=== PATIENT | male | born 1985 | race African-American/Black ===

== ENCOUNTER 2024-07-03 16:04 | Observation (INO) | payer OTHER, SELFPAY ==
[2024-07-03] VITALS (10 sets, daily range): BP systolic 105–138; BP diastolic 78–86; PULSE 71–90; TEMP 36.6–36.9; O2SAT 95–99; BMI 24.3
--- NOTE | 2024-07-03 16:28 | XR_ITS ---
The [address] [address] Patient Name: CAROLE VILLAGRAN MRN: [id number] date: 1985 Sex: M Assigned Patient Location: ER Current Patient Location: ER Accession/Order Number: [id number] Exam Date: 07/03/2024 16:58 Report Date: 07/03/2024 17:53 At the request of: ANDREW ROBERSON Procedure: XR chest 1V EXAM: XR chest 1V HISTORY: CP COMPARISON: None. TECHNIQUE: Chest X-ray AP, 1 view FINDINGS: Support devices: None. Lungs/pleura: No consolidation, effusion, or pneumothorax. Heart and mediastinum: Normal contours. Bones: No acute abnormality identified. XR/XR chest 1V Impression: No radiographic evidence of acute cardiopulmonary process. Electronically authenticated by: TONY MAHAN Date: 07/03/2024 17:53
--- NOTE | 2024-07-03 16:28 | ECG_ITS ---
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
[2024-07-03 16:45] LABS: Basophils Absolute Auto 0.1 10^3/uL (0.0-0.1); Basophils Percent Auto 0.4 % (0.2-2.0); Eosinophils Absolute Auto 0.1 10^3/uL (0.0-0.7); Eosinophils Percent Auto 1.2 % (0.9-7.0); Hematocrit 44.2 % (42.0-54.0); Hemoglobin 14.9 g/dL (14.0-18.0); Immature Granulocytes Abs Auto 0.05 10^3/uL (0.00-0.03); Immature Granulocytes Pct Auto 0.4 % (0.0-0.5); Lymphocytes Absolute Auto 2.4 10^3/uL (1.2-3.8); Lymphocytes Percent Auto 20.5 % (20.5-60.0); Mean Corpuscular HGB Conc 33.7 g/dL (29.9-35.2); Mean Corpuscular Hemoglobin 27.2 pg (25.9-34.0); Mean Corpuscular Volume 80.8 fL (80.0-94.0); Mean Platelet Volume 9.5 fL (9.5-13.5); Neutrophils Absolute Auto 7.8 10^3/uL (1.4-6.5); Neutrophils Percent Auto 68.5 % (43.0-75.0); Platelet Count 306 10^3/uL (150-450); Red Blood Count 5.47 10^6/uL (4.70-6.10); White Blood Count 11.5 10^3/uL (4.0-11.0)
[2024-07-03] MEDS: 0.9 % SODIUM CHLORIDE 1,000 ML 1000 ML IV ×2 (16:47→17:53)
[2024-07-03 17:01] LABS: INR 1.05; Prothrombin Time 11.1 sec (9.0-11.6)
--- NOTE | 2024-07-03 17:01 | ED_ITS ---
HPI - Chest Pain General Chief Complaint: Chest Pain Stated Complaint: BWC-CP, DIZZINESS Time Seen by Provider: 07/03/24 16:24 Source: patient Mode of arrival: walk-in Limitations: no limitations History of Present Illness HPI narrative: The patient is coming to us from his work in [employer] apparently it is very warm inside where he works, he mentioned that he had no complaint in the morning he had breakfast with no difficulty, almost at 10 AM which is almost 7 hours before arrival he started having some chest tightness, generalized pain, in addition to headache The patient upon arrival was very wet under his jumpsuit The patient also has been complaining of dizziness and he was sweating, no radiation of the pain down his leg or arm and he mentioned that it is mostly of tightness He denies any medical issues except taking gabapentin Related Data Home Medications ?Medication ?Instructions ?Recorded ?Confirmed gabapentin 300 mg capsule 300 mg PO TID 07/03/24 07/03/24 Allergies Allergy/AdvReac Type Severity Reaction Status Date / Time No Known Drug Allergies Allergy Verified 07/03/24 16:27 Review of Systems ROS Status of ROS 10 or more systems reviewed and unremark able except as noted in history and below Exam Narrative Exam Narrative: Nurses notes and vital signs reviewed and patient is not hypoxic. General: Well-appearing and in no apparent distress. Skin: Warm, dry, no pallor noted. No rash. Head: Normocephalic, atraumatic. Neck: Supple, non-tender. Eye: Pupils are equal, round and EOMI. No scleral icterus. Ears, Nose, Mouth, and Throat: TM are clear, no nasal mucosal hypertrophy. Oral mucosa is moist, no posterior oropharynx erythema, uvula is mid-line Cardiovascular: Regular Rate and Rhythm without murmur, gallop or rub. Respiratory: No accessory muscle use or respiratory distress. Lungs are clear to auscultation, no wheezing, rales or rhonchi Chest Wall: no tenderness Back: No midline thoracic or lumbar vertebral tenderness. No CVA tenderness Musculoskeletal: normal ROM, no calf or popliteal tenderness, no lower extremity edema/swelling GI: Abdomen is soft, non-distended. Normal bowel sounds. No masses appreciated. No tenderness to palpation. No rebound, guarding, or rigidity noted. Neurological: A&O x4. No cranial nerve dysfunction observed. No truncal ataxia. Moves all extremities. Sensation intact. Psychiatric: Cooperative and interactive. Normal mood and affect. Constitutional Vital Signs, click to edit/add: Last Vital Signs Temp 98.5 F 07/03/24 16:20 Pulse 84 07/03/24 17:00 Resp 16 07/03/24 17:00 BP 105/78 07/03/24 17:13 Pulse Ox 99 07/03/24 17:00 O2 Del Method Room Air 07/03/24 16:20 Course Vital Signs Vital signs: Vital Signs Pulse Oximetry 97 07/03/24 16:17 Temperature 98.5 F 07/03/24 16:20 Pulse Rate 84 07/03/24 17:00 Respiratory Rate 16 07/03/24 17:00 Blood Pressure 105/78 07/03/24 17:13 Pulse Oximetry 99 07/03/24 17:00 Oxygen Delivery Method Room Air 07/03/24 16:20 MDM - Chest Pain MDM Narrative Medical decision making narrative: It was noted that the patient EKG showing early repolarization signs with some ST changes and the heart rate was 91 The patient CBC showed no acute significant pathology but the chemistry showing acute kidney injury with creatinine 2.9 Potassium was normal The patient was started on IV fluid The patient first troponin is negative he will have another troponin just for confirmation but his presentation is mostly secondary to acute kidney injury secondary to dehydration Right now the patient will be admitted for 24 hours observation Patient case was discussed with Dr. Gill and the patient will be admitted under Dr. Valdez Lab Data Labs: Lab Results 07/03/24 Range/Units 16:28 WBC 11.5 H (4.0-11.0) 10^3/uL RBC 5.47 (4.70-6.10) 10^6/uL Hgb 14.9 (14.0-18.0) g/dL Hct 44.2 (42.0-54.0) % MCV 80.8 (80.0-94.0) fL MCH 27.2 (25.9-34.0) pg MCHC 33.7 (29.9-35.2) g/dL RDW 15.0 (11.0-15.0) % Plt Count 306 (150-450) 10^3/uL MPV 9.5 (9.5-13.5) fL Neut % (Auto) 68.5 (43.0-75.0) % Lymph % (Auto) 20.5 (20.5-60.0) % [place] % (Auto) 9.0 (1.7-12.0) % Eos % (Auto) 1.2 (0.9-7.0) % Baso % (Auto) 0.4 (0.2-2.0) % Neut # (Auto) 7.8 H (1.4-6.5) 10^3/uL Lymph # (Auto) 2.4 (1.2-3.8) 10^3/uL [place] # (Auto) 1.0 H (0.3-0.8) 10^3/uL Eos # (Auto) 0.1 (0.0-0.7) 10^3/uL Baso # (Auto) 0.1 (0.0-0.1) 10^3/uL Abs Immat Gran (auto) 0.05 H (0.00-0.03) 10^3/uL Imm/Tot Granulo (auto) 0.4 (0.0-0.5) % PT 11.1 (9.0-11.6) sec INR 1.05 Sodium 140 (136-145) mmol/L Potassium 3.7 (3.5-5.1) mmol/L Chloride 100 (98-107) mmol/L Carbon Dioxide 21.4 (21.0-32.0) mmol/L Anion Gap 22.3 BUN 27.0 H (7.0-18.0) mg/dL Creatinine 2.90 H (0.70-1.30) mg/dL Est GFR ( Amer) 29 L (>=60) Est GFR (Non-Af Amer) 24 L (>=60) BUN/Creatinine Ratio 9.3 Glucose 102 (74-106) mg/dL Calcium 10.6 H (8.5-10.1) mg/dL Magnesium 1.9 (1.8-2.4) mg/dL Total Bilirubin 0.4 (0.2-1.0) mg/dL AST 20 (15-37) U/L ALT 20 (16-63) U/L Alkaline Phosphatase 56 (46-116) U/L Troponin I High Sens 7.4 (4.0-76.1) pg/mL Total Protein 8.9 H (6.4-8.2) g/dL Albumin 5.3 H (3.4-5.0) g/dL Globulin 3.6 g/dL Albumin/Globulin Ratio 1.5 Discharge Plan Discharge Chief Complaint: Chest Pain Clinical Impression: PB (acute kidney injury), Exertional heat stroke Patient Disposition: Admitted as Observation Time of Disposition Decision: 18:39
--- NOTE | 2024-07-03 17:06 | PC.NURSE ---
pt states was working in 140 degrees. pt felt dizzy, chest tightness, loss his voice, lethargic.
[2024-07-03 17:45] LABS: Alanine Aminotransferase 20 U/L (16-63); Albumin Globulin Ratio 1.5; Albumin Level 5.3 g/dL (3.4-5.0); Alkaline Phosphatase 56 U/L (46-116); Anion Gap 22.3; Aspartate Amino Transferase 20 U/L (15-37); BUN Creatinine Ratio 9.3; Bilirubin Total 0.4 mg/dL (0.2-1.0); Calcium 10.6 mg/dL (8.5-10.1); Carbon Dioxide 21.4 mmol/L (21.0-32.0); Chloride 100 mmol/L (98-107); Estimated GFR (African America 29 (>=60); Estimated GFR (Non-African Ame 24 (>=60); Globulin 3.6 g/dL; Glucose 102 mg/dL (74-106); Potassium 3.7 mmol/L (3.5-5.1); Sodium 140 mmol/L (136-145); Total Protein 8.9 g/dL (6.4-8.2)
[2024-07-03 17:47] LABS: Magnesium 1.9 mg/dL (1.8-2.4); Troponin I High Sensitivity 7.4 pg/mL (4.0-76.1)
[2024-07-03 18:35] LABS: Bilirubin Urine NEGATIVE (NEGATIVE); Blood Urine NEGATIVE (NEGATIVE); Clarity Urine CLEAR (CLEAR); Color Urine YELLOW (YELLOW); Glucose Urine UA NEGATIVE (NEGATIVE); Ketones Urine TRACE mg/dL (NEGATIVE); Leukocyte Esterase Urine NEGATIVE (NEGATIVE); Nitrite Urine NEGATIVE (NEGATIVE); Protein Urine TRACE mg/dL (NEG/TRACE); Specific Gravity Urine >=1.030 (1.005-1.025); Urobilinogen Urine 0.2 EU/dL (0.2-1.0); pH Urine 5.5 (5.0-9.0)
[2024-07-03 18:49] LABS: Creatine Kinase 295 U/L (39-308); Troponin I High Sensitivity 6.8 pg/mL (4.0-76.1)
[2024-07-03 18:52] LABS: Urine Microscopic Indicated NO
[2024-07-03] MEDS: ACETAMINOPHEN 325 MG TABLET 650 MG PO (18:59)
[2024-07-03] MEDS: 0.9 % SODIUM CHLORIDE 1,000 ML 150 ML IV (20:37)
[2024-07-04] VITALS (10 sets, daily range): BP systolic 108–114; BP diastolic 61–71; PULSE 64–77; TEMP 36.6; O2SAT 95–99
[2024-07-04] MEDS: 0.9 % SODIUM CHLORIDE 1,000 ML 150 ML IV (02:41)
[2024-07-04 05:51] LABS: Basophils Percent Auto 0.5 % (0.2-2.0); Eosinophils Absolute Auto 0.3 10^3/uL (0.0-0.7); Eosinophils Percent Auto 5.3 % (0.9-7.0); Hematocrit 36.8 % (42.0-54.0); Hemoglobin 12.3 g/dL (14.0-18.0); Immature Granulocytes Abs Auto 0.02 10^3/uL (0.00-0.03); Immature Granulocytes Pct Auto 0.3 % (0.0-0.5); Lymphocytes Absolute Auto 1.9 10^3/uL (1.2-3.8); Lymphocytes Percent Auto 30.8 % (20.5-60.0); Mean Corpuscular HGB Conc 33.4 g/dL (29.9-35.2); Mean Corpuscular Hemoglobin 27.3 pg (25.9-34.0); Mean Corpuscular Volume 81.6 fL (80.0-94.0); Mean Platelet Volume 9.7 fL (9.5-13.5); Monocytes Absolute Auto 0.6 10^3/uL (0.3-0.8); Monocytes Percent Auto 10.7 % (1.7-12.0); Neutrophils Absolute Auto 3.1 10^3/uL (1.4-6.5); Neutrophils Percent Auto 52.4 % (43.0-75.0); Platelet Count 228 10^3/uL (150-450); Red Blood Count 4.51 10^6/uL (4.70-6.10); Red Cell Distribution Width 15.2 % (11.0-15.0)
--- OUTSIDE RECORDS SUMMARY | 2024-07-04 05:58 | XMS_ITS | CCD ---
Author Organization [facility] Inform ion Partnership [facility] Care Team Providers Care Plating Department Helper Name Role Phone KENAN BATES Admitting Unavailable KENAN BATES Attending Unavailable KENAN BATES Consulting Unavailable REQUEST, NONE LISTED Consulting Unavailable NO FAMILY, PHYSICIAN Primary Care Provider PUSHPA Perera Attending Provider [phone] LEI YOST Attending Unavailable DHARMESH FLORES Referring Unavailable NO PCP, NO PCP Primary Care Unavailable Cooper Mccracken Attending Unavailab Cooper Briones Admitting Unavailab le NO FAMILY, PHYSICIAN Primary Care Unavailable Medications Current Medications Medication Drug Class(es) Dates Sig (Normalized) Sig (Original) acetaminophen 325 mg oral tablet (1 source) Start: 05-15-2020 take 2 tablets by mouth every six hours Acetaminophen (Tylenol) 325 mg tablet Active 650 MG PO Q6H May 15, 2020 12:00am escitalopram 5 mg oral tablet (1 source) Serotonin Reuptake Inhibitor Start: 05-15-2020 take 1 tablet by mouth once daily at bedtime Escitalopram Oxalate (Lexapro) 5 mg tablet Active 5 MG PO Daily at bedtime May 15, 2020 12:00am 12 hr guaiFENesin 600 mg extended release oral tablet (1 source) Start: 05-15-2020 take 1 tablet by mouth twice daily, then take 1 tablet by mouth every twelve hours Guaifenesin (Mucinex) 600 mg tablet extended release 12hr Active 600 MG PO Twice daily May 15, 2020 12:00am nicotine 2 mg chewing gum (1 source) Cholinergic Nicotinic Agonist Start: 03-24-2020 Nicotine (Polacrilex) Active 2 MG BUCCAL Q2H March 24, 2020 12:00am OLANZapine 5 mg oral tablet (1 source) Atypical Antipsychotic Start: 05-15-2020 take 5 mg by mouth once daily at bedtime Olanzapine Active 5 MG PO Daily at bedtime May 15, 2020 12:00am Problems Problem Classification Problem Date Documented Date Episodic/Chronic Alcohol-related disorders (1 source) Alcohol dependence; Translations: [Alcohol dependence, uncomplicated] 05-13-2020 Chronic Allergic reactions (1 source) Dermatitis, unspecified; Translations: [DERMATITIS UNSPECIFIED] Onset: 10-24-2019 Episodic Esophageal disorders (1 source) Gastroesophageal reflux disease; Translations: [Gastro-esophageal reflux disease without esophagitis] 05-13-2020 Chronic Genitourinary symptoms and ill-defined conditions (4 sources) Urethral discharge, unspecified; Translations: [Dysuria] Onset: 10-22-2019 Episodic Immunizations and screening for infectious disease (1 source) Contact with and (suspected) exposure to infections with a predominantly sexual mode of transmission; Translations: [CONTCT W EXPOS INFECT SEXUAL TRNSMS] Onset: 10-24-2019 Episodic Mood disorders (1 source) Major depression, single episode; Translations: [Major depressive disorder, single episode, unspecified] 05-13-2020 Chronic Nutritional deficiencies (1 source) Vitamin D deficiency; Translations: [Vitamin D deficiency, unspecified] 05-13-2020 Chronic Other nervous system disorders (1 source) Lesion of ulnar nerve, left upper limb; Translations: [Lesion of ulnar nerve, left upper limb] Onset: 02-22-2024 Chronic Schizophrenia and other psychotic disorders (1 source) Psychotic disorder; Translations: [Unspecified psychosis not due to a substance or known physiological condition] 03-24-2020 Chronic Substance-related disorders (2 sources) Nicotine dependence, cigarettes, uncomplicated; Translations: [Cocaine abuse] Onset: 10-24-2019 05-13-2020 Chronic Substance-related disorders (1 source) Stimulant abuse; Translations: [Other stimulant use, unspecified, uncomplicated] 03-24-2020 Episodic Unclassified (1 source) New Patient Onset: 02-22-2024 Urinary tract infections (1 source) Other urethritis; Translations: [OTHER URETHRITIS] Onset: 10-24-2019 Episodic Viral infection (1 source) Disease caused by 2019-nCoV; Translations: [COVID-19] 05-14-2020 Episodic Results Test Name Value Interpretation Reference Range Facility No Panel InformationOrdered By: Christa Britton on 07-08-2022 Ova and Parasite Result 1 [facility] Basophils Auto (Bld) [#/Vol] Ordered By: Christa Britton on 07-01-2022 Basophils (Bld) [#/Vol] 0.0 10*3/uL 0.0-0.2 [facility] Basophils/100 WBC Auto (Bld) Ordered By: Christa Britton on 07-01-2022 Basophils/100 WBC (Bld) 0.3 % . [facility] Blood hemoglobin measurement (mass/volume)Ordered By: Christa Britton on 07-01-2022 Hemoglobin (Bld) [Mass/Vol] 14.8 g/dL 13.0-17.0 [facility] Blood leukocytes automated c ount (number/volume)Ordered By: Christa Britton on 07-01-2022 WBC (Bld) [#/Vol] 7.1 10*3/uL 4.5-11.0 [facility] Body fluid albumin measureme nt (mass/volume)Ordered By: Christa Britton on 07-01-2022 Albumin (Body fld) [Mass/Vol] 3.8 g/dL 3.2-5.5 [facility] Clostridioides difficile tox in B tcdB gene [Presence] in Stool by GOPI with probe deteOrdered By: Christa Britton on 07-01-2022 C. difficile toxin B tcdB gene GOPI+probe Ql (Stl) Negative Negative [facility] Comment on above: Testing performed by RT-PCR Creatinine and Glomerular fi ltration rate.predicted panel (S/P/Bld)Ordered By: Christa Britton on 07-01-2022 Creatinine [Mass/Vol] 0.98 mg/dL 0.64-1.27 [facility] Eosinophils Auto (Bld) [#/Vo l]Ordered By: Christa Britton on 07-01-2022 Eosinophils (Bld) [#/Vol] 0.0 10*3/uL 0.0-0.45 [facility] Eosinophils/100 WBC Auto (Bl d)Ordered By: Christa Britton on 07-01-2022 Eosinophils/100 WBC (Bld) 0.5 % . [facility] Erythrocyte distribution wid th Auto (RBC) [Ratio]Ordered By: Christanegrita Britton on 07-01-2022 Erythrocyte distribution width (RBC) [Ratio] 16.8 % 12.0-14.8 [facility] Estimated glomerular filtrat ion rate (GFR) non- AmericanOrdered By: Christa Britton on 07-01-2022 GFR/1.73 sq M.predicted among non-blacks MDRD (S/P/Bld) [Vol rate/Area] > 60 mL/Min [facility] Globulin Calc (S) [Mass/Vol] Ordered By: [place] on 07-01-2022 Globulin (S) [Mass/Vol] 2.9 g/dL [facility] Hematocrit Auto (Bld) [Volum e fraction]Ordered By: Christanegrita Britton on 07-01-2022 Hematocrit (Bld) [Volume fraction] 45.4 % 38.8-50.0 [facility] Hepatitis B virus surface Ag [Presence] in Serum or Plasma by ImmunoassayOrdered By: Christa Britton on 07-01-2022 HBV surface Ag IA Ql Negative Negative [facility] Hepatitis C virus RNA [Units /volume] (viral load) in Serum or Plasma by GOPI with probOrdered By: Christa Britton 07-01-2022 HCV RNA GOPI+probe Qn N/A [facility] Hepatitis C virus RNA [log u nits/volume] (viral load) in Serum or Plasma by GOPI withOrdered By: Christa Britton 07-01-2022 HCV RNA GOPI+probe [Log units/Vol] N/A [facility] - Chemistry and C hemistry - challengeOrdered By: Christanegrita Britton 07-01-2022 Amylase [Catalytic activity/Vol] 27 U/L 7-64 [facility] - Hematology and Cell countsOrdered By: Christanegrita Britton 07-01-2022 Nucleated RBC/100 WBC (Bld) [Ratio] 0.0 % 0-0.5 [facility] Lymphocytes Auto (Bld) [#/Vo l]Ordered By: Christa Britton 07-01-2022 Lymphocytes (Bld) [#/Vol] 1.0 10*3/uL 1.00-4.8 [facility] Lymphocytes/100 WBC Auto (Bl d)Ordered By: Christa Britton on 07-01-2022 Lymphocytes/100 WBC (Bld) 13.6 % . [facility] MCH Auto (RBC) [Entitic mass ]Ordered By: Christa Britton on 07-01-2022 MCH (RBC) [Entitic mass] 27.7 pg 27.5-35.2 [facility] MCHC Auto (RBC) [Mass/Vol]Or dered By: Christa Britton on 07-01-2022 MCHC (RBC) [Mass/Vol] 32.5 g/dL 32.5-35.6 [facility] MCV Auto (RBC) [Entitic vol] Ordered By: Christa Britton on 07-01-2022 MCV (RBC) [Entitic vol] 85.2 fL 83.5-101 [facility] Monocytes Auto (Bld) [#/Vol] Ordered By: Christa Britton on 07-01-2022 Monocytes (Bld) [#/Vol] 0.5 10*3/uL 0.0-0.8 [facility] Monocytes/100 WBC Auto (Bld) Ordered By: Christa Britton on 07-01-2022 Monocytes/100 WBC (Bld) 6.4 % . [facility] Neutrophils Auto (Bld) [#/Vo l]Ordered By: Christanegrita Britton on 07-01-2022 Neutrophils (Bld) [#/Vol] 5.6 10*3/uL 1.8-7.7 [facility] Neutrophils/100 WBC Auto (Bl d)Ordered By: Christanegrita Britton on 07-01-2022 Neutrophils/100 WBC (Bld) 79.2 % . [facility] No Panel InformationOrdered By: Christa Britton on 07-01-2022 Estimated GFR () > 60 mL/Min [facility] Comment on above: GFR estimated refere nce range: According to KDOQI guidelines, <60 ml/min/1.73m2 is sufficient to diagnose a patient with chronic kidney disease. Hepatitis A IgM Antibody Negative Negative [facility] Hepatitis B Core IgM Antibody Negative Negative [facility] Hepatitis C Interpretation See comment . [facility] Comment on above: Negative Not infected with HCV, unless recent infection is suspected or other evidence exists to indicate HCV infection. Performed at: [facility] [id number] [place] Selector: Devon Rodriguez PhD, Phone: [phone] Hepatitis C RNA Quantitative N/A [facility] Creatinine Clearance (Chem N/A [facility] Platelet mean volume Auto (B ld) [Entitic vol]Ordered By: Christa Britton on 07-01-2022 Platelet mean volume (Bld) [Entitic vol] 8.1 fL 6.6-10.1 [facility] Platelets Auto (Bld) [#/Vol] Ordered By: Christa Britton on 07-01-2022 Platelets (Bld) [#/Vol] 272 10*3/uL 150-450 [facility] Protein [Mass/volume] in Ser um or PlasmaOrdered By: Christa Britton on 07-01-2022 Protein [Mass/Vol] 6.7 g/dL 6.1-7.9 [facility] RBC Auto (Bld) [#/Vol]Ordere d By: Christa Britton on 07-01-2022 RBC (Bld) [#/Vol] 5.33 10*6/uL 3.90-5.60 [facility] Serum or plasma alanine reyes otransferase measurement without P-5'-P (enzymatic activiOrdered By: Christa Britton on 07-01-2022 ALT No additional P-5'-P [Catalytic activity/Vol] 22 U/L 10-60 [facility] Serum or plasma albumin/glob ulin mass ratioOrdered By: Christanegrita Britton on 07-01-2022 Albumin/Globulin [Mass ratio] 1.3 {ratio} [facility] Serum or plasma alkaline johnny sphatase measurement (enzymatic activity/volume)Ordered By: Christa Britton on 07-01-2022 ALP [Catalytic activity/Vol] 60 U/L 32-92 [facility] Serum or plasma aspartate am inotransferase measurement (enzymatic activity/volume)Ordered By: Christa Britton on 07-01-2022 AST [Catalytic activity/Vol] 28 U/L 10-42 [facility] Serum or plasma calcium dana urement (mass/volume)Ordered By: Christa Britton on 07-01-2022 Calcium [Mass/Vol] 9.2 mg/dL 8.2-10.2 [facility] Serum or plasma chloride doroteo surement (moles/volume)Ordered By: Christa Britton on 07-01-2022 Chloride [Moles/Vol] 104 mmol/L 95-114 [facility] Serum or plasma glucose dana urement (mass/volume)Ordered By: Christa Britton on 07-01-2022 Glucose [Mass/Vol] 142 mg/dL 70-100 [facility] Comment on above: ADA recommended refe rence range Random Glucose Reference Range is dependent on time and content of last meal. Glucose of more than 200 mg/dL in a nonstressed, ambulatory subject supports the diagnosis of Diabetes Mellitus. Serum or plasma hepatitis C virus antibody signal/cutoff ratio by immunoassay (relatiOrdered By: Christa Britton on 07-01-2022 HCV Ab Signal/Cutoff IA [Rel units/Vol] <0.1 s/co ratio 0.0-0.9 [facility] Serum or plasma potassium me asurement (moles/volume)Ordered By: Christa Britton 07-01-2022 Potassium [Moles/Vol] 3.5 mmol/L 3.5-5.1 [facility] Serum or plasma sodium measu rement (moles/volume)Ordered By: Christa Britton 07-01-2022 Sodium [Moles/Vol] 136 mmol/L 136-146 [facility] Serum or plasma total biliru bin measurement (mass/volume)Ordered By: Christa Britton 07-01-2022 Bilirubin [Mass/Vol] 0.6 mg/dL 0.3-1.2 [facility] Serum or plasma total carbon dioxide measurement (moles/volume)Ordered By: Christa Britton 07-01-2022 CO2 [Moles/Vol] 22.4 mmol/L 22.0-30.0 [facility] Serum or plasma urea nitroge n measurement (mass/volume)Ordered By: Christa Britton on 07-01-2022 Urea nitrogen [Mass/Vol] 7 mg/dL 07-31 [facility] XR Abdomen 2 Viewson 022 XR Abdomen 2 Views HISTORY: Epigastric pain and nausea for 1 month. COMPARISON: None available TECHNIQUE: Frontal view of the abdomen and pelvis FINDINGS: No calcifications identified over the renal shadows, expected course of the ureters, urinary bladder. Nonobstructive bowel gas pattern. No evidence of free air. Bones appear within normal limits. IMPRESSION: Nonobstructive bowel gas pattern. Report reported and signed by Tyler Panchal on 07/01/2022 1032 Normal [facility] Agronomy Manager XR Spine Lumbar 4+ Views*on 07-01-2022 XR Spine Lumbar 4+ Views* HISTORY: Lower back pain for 1 month. No known injury. COMPARISON: None available TECHNIQUE: AP, lateral, bilateral oblique views of the lumbar spine and AP and lateral coned-down views of the lumbosacral junction FINDINGS: Lumbar vertebral body heights are maintained. Intervertebral disc heights are maintained. Minimal dextrocurvature. No spondylolysis or spondylolisthesis. No acute fracture or malalignment. Sacroiliac joints appear normal. IMPRESSION: No acute osseous abnormality. Report reported and signed by Tyler Panchal on 07/01/2022 1031 Normal [facility] Specialist CHLAMYDIA/GONOCOCCUS GOPI (SW AB/URINE/PAPon 10-25-2019 Chlamydia trachomatis, GOPI Negative Normal Negative [facility] Comment on above: Performed By: #### C T/NGNA #### [facility] [address] [address] Aj Carmona Neisseria gonorrhoeae, GOPI Negative Normal Negative [facility] Comment on above: Performed By: #### C T/NGNA #### [facility] [address] [address] Aj Carmona CULTURE URINEon 10-22-2019 CULTURE URINE Culture Observations: Light growth of mixed skin razia.No potential pathogens seen. Normal [facility] Comment on above: Performed By: #### U RCX #### [facility] [address] [place] [address] Aj Kristine ER URINE PROFILEon 9 Bilirubin [Mass/Vol] Negative Normal NEGATIVE [facility] Comment on above: Performed By: #### JOHAN VALLE #### [facility] [address] [place] [address] Aj Kristine BLOOD Negative Normal NEGATIVE [facility] Comment on above: Performed By: #### JOHAN VALLE #### [facility] [address] [place] [address] Aj Kristine Clarity (U) CLEAR Normal [facility] Comment on above: Performed By: #### JOHAN VALLE #### [facility] [address] [place] [address] Aj Kristine Color (U) YELLOW Normal YELLOW [facility] Comment on above: Performed By: #### JOHAN VALLE #### [facility] [address] [place] [address] Aj Kristine ERUAHD A micrscopic examination will be performed if indicated. Normal [facility] Comment on above: Performed By: #### JOHAN VALLE #### [facility] [address] [place] [address] Aj Kristine Glucose [Mass/Vol] Negative Normal NEGATIVE [facility] Comment on above: Performed By: #### JOHAN VALLE #### [facility] [address] [place] [address] Aj Kristine Ketones Ql (U) Negative Normal NEGATIVE [facility] Comment on above: Performed By: #### JOHAN VALLE #### [facility] [address] [place] [address] Aj Kristine Nitrite Ql (U) Negative Normal NEGATIVE [facility] Comment on above: Performed By: #### ARJUN VALLERO #### [facility] [address] [place] [address] Aj Kristine pH (Bld) 7.0 Normal 5-9 [facility] Comment on above: Performed By: #### JOHAN VALLE #### [facility] [address] [place], [place] [id number] Aj Kristine Protein (U) [Mass/Vol] Negative Normal [facility] Comment on above: Performed By: #### JOHAN VALLE #### [facility] [address] [place], [place] [id number] Aj Kristine SPEC GRAVITY 1.020 Normal 1.005-<=1.025 [facility] Comment on above: Performed By: #### JOHAN VALLE #### [facility] [address] [place] [address] Aj Kristine UR MICRO IND INDICATED Normal [facility] Comment on above: Performed By: #### JOHAN VALLE #### [facility] [address] [place] [address] Aj Kristine Urobilinogen Qn (U) 1.0 EU/dl Normal [facility] Comment on above: Performed By: #### JOHAN VALLE #### [facility] [address] [place], [place] [id number] Aj Kristine WBC (Bld) [#/Vol] TRACE Normal NEGATIVE [facility] Comment on above: Performed By: #### JOHAN VALLE #### [facility] [address] [place], [place] [phone] Aj Kristine URINE MICROSCOPIC ONLYon Bacteria LM.HPF (Urine sed) [#/Area] TRACE Normal NONE SEEN [facility] Comment on above: Performed By: #### JOHAN VALLE #### [facility] [address] [place], [place] [id number] Aj Kristine CAST NONE SEEN Normal NONE SEEN [facility] Comment on above: Performed By: #### JOHAN VALLE #### [facility] [address] [place], [place] [phone] Aj Kristine Crystals LM Nom (Urine sed) NONE SEEN Normal NONE SEEN [facility] Comment on above: Performed By: #### JOHAN VALLE #### [facility] [address] [place] [address] Aj Kristine CULTURE INDICATED Normal [facility] Comment on above: Performed By: #### E JOYCELYN UMICRO #### [facility] [address] [id number] Ajchuck Carmona Epithelial cells LM.HPF (Urine sed) [#/Area] FEW Normal [facility] Comment on above: Performed By: #### E RUR, UMICRO #### [facility] [address] [phone] Aj Kristine MUCOUS LARGE Normal NONE SEEN [facility] Comment on above: Performed By: #### E RUR, UMICRO #### [facility] [address] [phone] Aj Carmona RBC (U) [#/Vol] 0-2 Normal 0-2 [facility] Comment on above: Performed By: #### Marvel HIRSCH, UMICRO #### [facility] [address] [phone] Aj Carmona WBC (Bld) [#/Vol] 10-20 Normal NONE SEEN [facility] Comment on above: Performed By: #### Marvel RUR, UMICRO #### [facility] [address] [phone] Aj Carmona Encounters Encounter Date Encounter Type Care Provider Facility Start: 06-22-2024 ambulatory Cooper Anthony acility:[facility] Start: 02-22-2024 End: 02-22-2024 ambulatory [facility] Start: 07-01-2022 End: 07-01-2022 Patient encounter procedure PHYSICIAN NO FAMILY [facility] Start: 10-22-2019 End: 10-22-2019 Patient encounter procedure KENAN BATES Facility:[facility] Procedures Date Procedure Procedure Detail Performing Clinician Ova and Parasite Result 1 PH YSICIAN NO FAMILY Ova OR parasites identification PHYSICIAN NO FAMILY Payers Date Payer Category Payer Self-pay [id number] 2022 Private Health Insurance [id number] 2022 Private Health Insurance [id number] 1985 Unknown [id number] 1985 Unknown [id number] 1959 Private Health Insurance [id number] Private Health Insurance [facility] [id number] Unknown [id number] Social History Date Type Detail Facility Start: 05-14-2020 Tobacco smoking stat [facility] Smoker (finding) [facility] Start: 1985 Sex Assigned At Male [facility] Evaluation note Note Date & Type Note Facility Evaluation note No assessment information availa ble [facility] Work Phone: Summary Purpose Family History No Family History Records FoundNo Family History Records FoundNo Family History Records FoundNo Family History Records Found Advance Directives No Advanced Directives Records Found Advance Directive Response Recorded Date/ Time Advance Directives No March 23 0 4:49pm Chief Complaint and Reason for Visit Chief Complaint M54.50 Additional Source Comments (unrecognized sect ion and content) No Status Records FoundNo Status Records FoundNo Status Records FoundNo Status Records Found INFORMATION SOURCE (unrecogn ized section and content) DATE CREATED AUTHOR 10/25/[address] [facility] pital DATE CREATED AUTHOR AUTHOR'S ORGANIZ ATION 07/04/2022 [facility] dical Specialist DATE CREATED AUTHOR AUTHOR'S ORGANIZ ATION 02/23/2024 [facility] DATE CREATED AUTHOR AUTHOR'S ORGANIZ ATION 06/23/2024 [facility] Care Teams (unrecognized sec tion and content) Team Status: Inactive Member Role Status Dates PHYSICIAN NO FAMILY Primary Care Provider Active PUSHPA Smith Attending Provider Active Team Status: Active Member Role Status Dates PHYSICIAN NO FAMILY Primary Care Provider Active Goals (unrecognized section and content) Goals may be documented in a n alternate section FOR RECORDS PERTAINING TO PATIENTS WHO ARE OR HAVE BEEN ENROLLED IN A CHEMICAL DEPENDENCY/SUBSTANCEABUSE PROGRAM, SOME INFORMATION MAY BE OMITTED. This clinical summary was aggregated from multiple sources. Caution should be exercised in using it in the provision of clinical care. This summary normalizes information from multiple sources, and as a consequence, information in this document may materially change the coding, format and clinical context of patient data. In addition, data may be omitted in some cases. CLINICAL DECISIONS SHOULD BE BASED ON THE PRIMARY CLINICAL RECORDS. [facility]. provides no warranty or guarantee of the accuracy or completeness of information in this document.
[2024-07-04 06:06] LABS: Alanine Aminotransferase 16 U/L (16-63); Albumin Globulin Ratio 1.2; Albumin Level 3.3 g/dL (3.4-5.0); Alkaline Phosphatase 45 U/L (46-116); Anion Gap 13.6; Aspartate Amino Transferase 15 U/L (15-37); BUN Creatinine Ratio 16.8; Bilirubin Total 0.2 mg/dL (0.2-1.0); Calcium 8.2 mg/dL (8.5-10.1); Carbon Dioxide 25.1 mmol/L (21.0-32.0); Chloride 106 mmol/L (98-107); Estimated GFR (African America >60 (>=60); Estimated GFR (Non-African Ame >60 (>=60); Globulin 2.7 g/dL; Glucose 109 mg/dL (74-106); Magnesium 1.6 mg/dL (1.8-2.4); Phosphorus 3.5 mg/dL (2.6-4.7); Potassium 3.7 mmol/L (3.5-5.1); Sodium 141 mmol/L (136-145)
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
--- NOTE | 2024-07-04 11:14 | CM.NOTE ---
Rounds made with Dr. Valdez, pt will discharge to home today. Pt will be off work until f/u with primary care doctor or Occupational Health. Discussed with pt about importance of hydration. Register Repairer spoke with Occupational Health for f/u appt with pt.
--- NOTE | 2024-07-04 12:08 | P.DS_ITS ---
DS: Providers Provider Date of admission: 07/03/24 20:19 Primary care physician: [facility] Attending physician on admission: Renetta Spencer Discharging clinician: Camryn Valdez DS: Diagnosis Discharge Diagnosis (1) Exertional heat stroke: (2) PB (acute kidney injury): (3) Dehydration: DS: Summary Hospital Course Hospital Course: see H&P dated 07/04/24 Time Spent with Patient Time attestation: Total time spent providing and/or coordinating discharge services: Exam Narrative Exam Narrative: no changes in H&P exam at the time of discharge. Constitutional Vital Signs, click to edit/add: Last Vital Signs Temp 97.8 F 07/04/24 07:55 Pulse 75 07/04/24 09:59 Resp 18 07/04/24 07:55 BP 114/71 07/04/24 07:55 Pulse Ox 95 07/04/24 10:28 O2 Del Method Room Air 07/04/24 10:28 DS: Data Data Completed and Pending Labs on day of discharge: Labs from last 24 hours 07/04/24 07/03/24 07/03/24 05:38 18:07 16:28 WBC 6.0 11.5 H RBC 4.51 L 5.47 Hgb 12.3 L 14.9 Hct 36.8 L 44.2 MCV 81.6 80.8 MCH 27.3 27.2 MCHC 33.4 33.7 RDW 15.2 H 15.0 Plt Count 228 306 MPV 9.7 9.5 Neut % (Auto) 52.4 68.5 Lymph % (Auto) 30.8 20.5 [place] % (Auto) 10.7 9.0 Eos % (Auto) 5.3 1.2 Baso % (Auto) 0.5 0.4 Neut # (Auto) 3.1 7.8 H Lymph # (Auto) 1.9 2.4 [place] # (Auto) 0.6 1.0 H Eos # (Auto) 0.3 0.1 Baso # (Auto) 0.0 0.1 Abs Immat Gran (auto) 0.02 0.05 H Imm/Tot Granulo (auto) 0.3 0.4 PT 11.1 INR 1.05 Sodium 141 140 Potassium 3.7 3.7 Chloride 106 100 Carbon Dioxide 25.1 21.4 Anion Gap 13.6 22.3 BUN 19.0 H 27.0 H Creatinine 1.13 2.90 H Est GFR ( Amer) >60 29 L Est GFR (Non-Af Amer) >60 24 L BUN/Creatinine Ratio 16.8 9.3 Glucose 109 H 102 Calcium 8.2 L 10.6 H Phosphorus 3.5 Magnesium 1.6 L 1.9 Total Bilirubin 0.2 0.4 AST 15 20 ALT 16 20 Alkaline Phosphatase 45 L 56 Total Creatine Kinase 295 Troponin I High Sens 6.8 7.4 Total Protein 6.0 L 8.9 H Albumin 3.3 L 5.3 H Globulin 2.7 3.6 Albumin/Globulin Ratio 1.2 1.5 Urine Color Yellow Urine Clarity Clear Urine pH 5.5 Ur Specific [place] >=1.030 A Urine Protein Trace Urine Glucose (UA) Negative Urine Ketones Trace A Urine Occult Blood Negative Urine Nitrite Negative Urine Bilirubin Negative Urine Urobilinogen 0.2 Ur Leukocyte Esterase Negative Discharge Plan Discharge Disposition: Home, Self-Care Discharge Medications: Continued No Known Home Medications Activity: increase activity as tolerated Diet: advance to your usual diet Print Language: Ken[place] Patient Instructions: Acute Kidney Injury (DC), Heatstroke (ED) Forms: Portal Instructions Follow Up Appointments: *Jul.14 @ 12:45pm with [facility] [phone] (may not return to work until this follow up) *Jul 11 @ 10:00am with Occupational Health at [facility]
--- OUTSIDE RECORDS SUMMARY | 2024-07-05 08:42 | XMS_ITS | CCD ---
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 Name Role Phone KENAN BATES Admitting Unavailable KENAN BATES Attending Unavailable KENAN BATES Consulting Unavailable REQUEST, NONE LISTED Consulting Unavailable NO FAMILY, PHYSICIAN Primary Care Provider PUSHPA Perera Attending Provider [phone] LEI YOST Attending Unavailable DHARMESH FLORES Referring [...] on 07-08-2022 Ova and Parasite Result 1 [facility] Basophils Auto (Bld) [#/Vol] Ordered By: Christa Britton on 07-01-2022 Basophils (Bld) [#/Vol] 0.0 10*3/uL 0.0-0.2 [facility] Basophils/100 WBC Auto (Bld) Ordered By: Christa Britton on 07-01-2022 Basophils/100 WBC (Bld) 0.3 % . [facility] Blood hemoglobin measurement (mass/volume)Ordered By: Christa Britton on 07-01-2022 Hemoglobin (Bld) [Mass/Vol] 14.8 g/dL 13.0-17.0 [facility] Blood leukocytes automated c ount (number/volume)Ordered By: Christa Britton on 07-01-2022 WBC (Bld) [#/Vol] 7.1 10*3/uL 4.5-11.0 [facility] Body fluid albumin measureme nt (mass/volume)Ordered By: Christa Britton on 07-01-2022 Albumin (Body fld) [Mass/Vol] 3.8 g/dL 3.2-5.5 [facility] Clostridioides difficile tox in B tcdB gene [Presence] in Stool by GOPI with probe deteOrdered By: Christa Britton on 07-01-2022 C. difficile toxin B tcdB gene GOPI+probe Ql (Stl) Negative Negative [facility] Comment on above: Testing performed by RT-PCR Creatinine and Glomerular fi ltration rate.predicted panel (S/P/Bld)Ordered By: Christa Britton on 07-01-2022 Creatinine [Mass/Vol] 0.98 mg/dL 0.64-1.27 [facility] Eosinophils Auto (Bld) [#/Vo l]Ordered By: Christa Britton on 07-01-2022 Eosinophils (Bld) [#/Vol] 0.0 10*3/uL 0.0-0.45 [facility] Eosinophils/100 WBC Auto (Bl d)Ordered By: Christa Britton on 07-01-2022 Eosinophils/100 WBC (Bld) 0.5 % . [facility] Erythrocyte distribution wid th Auto (RBC) [Ratio]Ordered By: Christanegrita Britton on 07-01-2022 Erythrocyte distribution width (RBC) [Ratio] 16.8 % 12.0-14.8 [facility] Estimated glomerular filtrat ion rate (GFR) non- AmericanOrdered By: Christa Britton on 07-01-2022 GFR/1.73 sq M.predicted among non-blacks MDRD (S/P/Bld) [Vol rate/Area] > 60 mL/Min [facility] Globulin Calc (S) [Mass/Vol] Ordered By: [place] on 07-01-2022 Globulin (S) [Mass/Vol] 2.9 g/dL [facility] Hematocrit Auto (Bld) [Volum e fraction]Ordered By: Christanegrita Britton on 07-01-2022 Hematocrit (Bld) [Volume fraction] 45.4 % 38.8-50.0 [facility] Hepatitis B virus surface Ag [Presence] in Serum or Plasma by ImmunoassayOrdered By: Christa Britton on 07-01-2022 HBV surface Ag IA Ql Negative Negative [facility] Hepatitis C virus RNA [Units /volume] (viral load) in Serum or Plasma by GOPI with probOrdered By: Christa Britton 07-01-2022 HCV RNA GOPI+probe Qn N/A [facility] Hepatitis C virus RNA [log u nits/volume] (viral load) in Serum or Plasma by GOPI withOrdered By: Christa Britton 07-01-2022 HCV RNA GOPI+probe [Log units/Vol] N/A [facility] Laboratory - Chemistry and C hemistry - challengeOrdered By: Christanegrita Britton 07-01-2022 Amylase [Catalytic activity/Vol] 27 U/L 7-64 [facility] - Hematology and Cell countsOrdered By: Christanegrita Britton 07-01-2022 Nucleated RBC/100 WBC (Bld) [Ratio] 0.0 % 0-0.5 [facility] Lymphocytes Auto (Bld) [#/Vo l]Ordered By: Christa Britton 07-01-2022 Lymphocytes (Bld) [#/Vol] 1.0 10*3/uL 1.00-4.8 [facility] Lymphocytes/100 WBC Auto (Bl d)Ordered By: Christa Britton on 07-01-2022 Lymphocytes/100 WBC (Bld) 13.6 % . [facility] MCH Auto (RBC) [Entitic mass ]Ordered By: Christa Britton on 07-01-2022 MCH (RBC) [Entitic mass] 27.7 pg 27.5-35.2 [facility] MCHC Auto (RBC) [Mass/Vol]Or dered By: Christa Britton on 07-01-2022 MCHC (RBC) [Mass/Vol] 32.5 g/dL 32.5-35.6 [facility] MCV Auto (RBC) [Entitic vol] Ordered By: Christa Britton on 07-01-2022 MCV (RBC) [Entitic vol] 85.2 fL 83.5-101 [facility] Monocytes Auto (Bld) [#/Vol] Ordered By: Christa Britton on 07-01-2022 Monocytes (Bld) [#/Vol] 0.5 10*3/uL 0.0-0.8 [facility] Monocytes/100 WBC Auto (Bld) Ordered By: Christa Britton on 07-01-2022 Monocytes/100 WBC (Bld) 6.4 % . [facility] Neutrophils Auto (Bld) [#/Vo l]Ordered By: Christanegrita Britton on 07-01-2022 Neutrophils (Bld) [#/Vol] 5.6 10*3/uL 1.8-7.7 [facility] Neutrophils/100 WBC Auto (Bl d)Ordered By: Christanegrita Britton on 07-01-2022 Neutrophils/100 WBC (Bld) 79.2 % . [facility] No Panel InformationOrdered By: Christa Britton on 07-01-2022 Estimated GFR () > 60 mL/Min [facility] Comment on above: GFR estimated refere nce range: According to KDOQI guidelines, <60 ml/min/1.73m2 is sufficient to diagnose a patient with chronic kidney disease. Hepatitis A IgM Antibody Negative Negative [facility] Hepatitis B Core IgM Antibody Negative Negative [facility] Hepatitis C Interpretation See comment . [facility] Comment on above: Negative Not infected with HCV, unless recent infection is suspected or other evidence exists to indicate HCV infection. Performed at: [facility] [id number] Well Control Instructor: Devon Rodriguez PhD, Phone: [phone] Hepatitis C RNA Quantitative N/A [facility] Creatinine Clearance (Chem N/A [facility] Platelet mean volume Auto (B ld) [Entitic vol]Ordered By: Christa Britton on 07-01-2022 Platelet mean volume (Bld) [Entitic vol] 8.1 fL 6.6-10.1 [facility] Platelets Auto (Bld) [#/Vol] Ordered By: Christa Britton on 07-01-2022 Platelets (Bld) [#/Vol] 272 10*3/uL 150-450 [facility] Protein [Mass/volume] in Ser um or PlasmaOrdered By: Christa Britton on 07-01-2022 Protein [Mass/Vol] 6.7 g/dL 6.1-7.9 [facility] RBC Auto (Bld) [#/Vol]Ordere d By: Christa Britton on 07-01-2022 RBC (Bld) [#/Vol] 5.33 10*6/uL 3.90-5.60 [facility] Serum or plasma alanine reyes otransferase measurement without P-5'-P (enzymatic activiOrdered By: Christa Britton on 07-01-2022 ALT No additional P-5'-P [Catalytic activity/Vol] 22 U/L 10-60 [facility] Serum or plasma albumin/glob ulin mass ratioOrdered By: Christanegrita Britton on 07-01-2022 Albumin/Globulin [Mass ratio] 1.3 {ratio} [facility] Serum or plasma alkaline johnny sphatase measurement (enzymatic activity/volume)Ordered By: Christa Britton on 07-01-2022 ALP [Catalytic activity/Vol] 60 U/L 32-92 [facility] Serum or plasma aspartate am inotransferase measurement (enzymatic activity/volume)Ordered By: Christa Britton on 07-01-2022 AST [Catalytic activity/Vol] 28 U/L 10-42 [facility] Serum or plasma calcium dana urement (mass/volume)Ordered By: Christa Britton on 07-01-2022 Calcium [Mass/Vol] 9.2 mg/dL 8.2-10.2 [facility] Serum or plasma chloride doroteo surement (moles/volume)Ordered By: Christa Britton on 07-01-2022 Chloride [Moles/Vol] 104 mmol/L 95-114 [facility] Serum or plasma glucose dana urement (mass/volume)Ordered By: Christa Britton on 07-01-2022 Glucose [Mass/Vol] 142 mg/dL 70-100 [facility] Comment on above: ADA recommended refe [...] IA [Rel units/Vol] <0.1 s/co ratio 0.0-0.9 [facility] Serum or plasma potassium me asurement (moles/volume)Ordered By: Christa Britton 07-01-2022 Potassium [Moles/Vol] 3.5 mmol/L 3.5-5.1 [facility] Serum or plasma sodium measu rement (moles/volume)Ordered By: Christa Britton 07-01-2022 Sodium [Moles/Vol] 136 mmol/L 136-146 [facility] Serum or plasma total biliru bin measurement (mass/volume)Ordered By: Christa Britton 07-01-2022 Bilirubin [Mass/Vol] 0.6 mg/dL 0.3-1.2 [facility] Serum or plasma total carbon dioxide measurement (moles/volume)Ordered By: Christa Britton 07-01-2022 CO2 [Moles/Vol] 22.4 mmol/L 22.0-30.0 [facility] Serum or plasma urea nitroge n measurement (mass/volume)Ordered By: Christa Britton on 07-01-2022 Urea nitrogen [Mass/Vol] 7 mg/dL 07-31 [facility] XR Abdomen 2 Viewson 022 XR [...] by Tyler Panchal on 07/01/2022 1032 Normal [facility] Chemical Waste Management Technician XR Spine Lumbar 4+ Views*on 07-01-2022 XR [...] by Tyler Panchal on 07/01/20[address] [facility] Specialist CHLAMYDIA/GONOCOCCUS GOPI (SW AB/URINE/PAPon 10-25-2019 Chlamydia trachomatis, GOPI Negative Normal Negative [facility] Comment on above: Performed By: #### C T/NGNA #### [facility] [address] [address] Aj Carmona Neisseria gonorrhoeae, GOPI Negative Normal Negative [facility] Comment on above: Performed By: #### C T/NGNA #### [facility] [address] [address] Aj Carmona CULTURE URINEon 10-22-2019 CULTURE URINE Culture Observations: Light growth of mixed skin razia.No potential pathogens seen. Normal [facility] Comment on above: Performed By: #### U RCX #### [facility] [address] [place] [address] Aj Kristine ER URINE PROFILEon 9 Bilirubin [Mass/Vol] Negative Normal NEGATIVE [facility] Comment on above: Performed By: #### JOHAN VALLE #### [facility] [address] [place] [address] Aj Kristine BLOOD Negative Normal NEGATIVE [facility] Comment on above: Performed By: #### JOHAN VALLE #### [facility] [address] [place] [address] Aj Kristine Clarity (U) CLEAR Normal [facility] Comment on above: Performed By: #### JOHAN VALLE #### [facility] [address] [place] [address] Aj Kristine Color (U) YELLOW Normal YELLOW [facility] Comment on above: Performed By: #### JOHAN VALLE #### [facility] [address] [place] [address] Aj Kristine ERUAHD A micrscopic examination will be performed if indicated. Normal [facility] Comment on above: Performed By: #### JOHAN VALLE #### [facility] [address] [place] [address] Aj Kristine Glucose [Mass/Vol] Negative Normal NEGATIVE [facility] Comment on above: Performed By: #### JOHAN VALLE #### [facility] [address] [place] [address] Aj Kristine Ketones Ql (U) Negative Normal NEGATIVE [facility] Comment on above: Performed By: #### JOHAN VALLE #### [facility] [address] [place] [address] Aj Kristine Nitrite Ql (U) Negative Normal NEGATIVE [facility] Comment on above: Performed By: #### ARJUN VALLERO #### [facility] [address] [place] [address] Aj Kristine pH (Bld) 7.0 Normal 5-9 [facility] Comment on above: Performed By: #### JOHAN VALLE #### [facility] [address] [place], [place] [id number] Aj Kristine Protein (U) [Mass/Vol] Negative Normal [facility] Comment on above: Performed By: #### JOHAN VALLE #### [facility] [address] [place], [place] [id number] Aj Kristine SPEC GRAVITY 1.020 Normal 1.005-<=1.025 [facility] Comment on above: Performed By: #### JOHAN VALLE #### [facility] [address] [place] [address] Aj Kristine UR MICRO IND INDICATED Normal [facility] Comment on above: Performed By: #### JOHAN VALLE #### [facility] [address] [place] [address] Aj Kristine Urobilinogen Qn (U) 1.0 EU/dl Normal [facility] Comment on above: Performed By: #### JOHAN VALLE #### [facility] [address] [place], [place] [id number] Aj Kristine WBC (Bld) [#/Vol] TRACE Normal NEGATIVE [facility] Comment on above: Performed By: #### JOHAN VALLE #### [facility] [address] [place], [place] [id number] Aj Kristine URINE MICROSCOPIC ONLYon Bacteria LM.HPF (Urine sed) [#/Area] TRACE Normal NONE SEEN [facility] Comment on above: Performed By: #### JOHAN VALLE #### [facility] [address] [place], [place] [id number] Aj Kristine CAST NONE SEEN Normal NONE SEEN [facility] Comment on above: Performed By: #### JOHAN VALLE #### [facility] [address] [place], [place] [id number] Aj Kristine Crystals LM Nom (Urine sed) NONE SEEN Normal NONE SEEN [facility] Comment on above: Performed By: #### JOHAN VALLE #### [facility] [address] [place] [address] Ja Kristine CULTURE INDICATED Normal [facility] Comment on above: Performed By: #### E JOYCELYN UMICRO #### [facility] [address] [id number] Ajchuck Carmona Epithelial cells LM.HPF (Urine sed) [#/Area] FEW Normal [facility] Comment on above: Performed By: #### E RUR, UMICRO #### [facility] [address] [id number] Aj Kristine MUCOUS LARGE Normal NONE SEEN [facility] Comment on above: Performed By: #### E RUR, UMICRO #### [facility] [address] [id number] Aj Carmona RBC (U) [#/Vol] 0-2 Normal 0-2 [facility] Comment on above: Performed By: #### Marvel HIRSCH, UMICRO #### [facility] [address] [id number] Aj Carmona WBC (Bld) [#/Vol] 10-20 Normal NONE SEEN [facility] Comment on above: Performed By: #### Marvel RUR, UMICRO #### [facility] [address] [id number] Aj Carmona Encounters Encounter Date Encounter Type Care Provider Facility Start: 06-22-2024 ambulatory Cooper Anthony acility:[facility] Start: 02-22-2024 End: 02-22-2024 ambulatory [facility] Start: 07-01-2022 End: 07-01-2022 Patient encounter procedure PHYSICIAN NO FAMILY [facility] Start: 10-22-2019 End: 10-22-2019 Patient encounter procedure KENAN BATES Facility:[facility] Procedures Date Procedure Procedure Detail Performing Clinician Ova and Parasite Result 1 PH YSICIAN NO FAMILY Ova OR parasites identification PHYSICIAN NO FAMILY Payers Date Payer Category Payer Self-pay [id number] 2022 Private Health Insurance [id number] 2022 Private Health Insurance [id number] 1985 Unknown [id number] 1985 Unknown [id number] 1961 Private Health Insurance [id number] Private Health Insurance [facility] [id number] Unknown [id number] Social History Date Type Detail Facility Start: 05-14-2020 Tobacco smoking stat [facility] Smoker (finding) [facility] Start: 1985 Sex Assigned At Male F [facility] Evaluation note Note Date & Type Note Facility Evaluation note No assessment information availa ble [facility] Work Phone: Summary Purpose Family History No [...] and content) DATE CREATED AUTHOR 10/25/[address] [facility] pital DATE CREATED AUTHOR AUTHOR'S ORGANIZ ATION 07/04/2022 [facility] dical Specialist DATE CREATED AUTHOR AUTHOR'S ORGANIZ ATION 02/23/2024 [facility] DATE CREATED AUTHOR AUTHOR'S ORGANIZ ATION 06/23/2024 [facility] Care Teams (unrecognized sec tion [...] BE BASED ON THE PRIMARY CLINICAL RECORDS. [facility]. provides no warranty or guarantee of the accuracy or completeness of information in this document.
--- NOTE | 2024-07-05 14:23 | CM.DCFOLLOWU ---
Person spoke with:patient How are you feeling?fine How is your pain?none Did you understand your discharge instructions?yes Do you have any questions about your discharge instructions?no Were you given any prescriptions at discharge?no Were you able to get your prescriptions filled?N/A Do you understand how to take your medications as ordered?yes Do you have any questions about your follow up appointment and do you plan to keep your follow up appointment?no questions, follow ups reviewed with patient Is there anything else that you would like to discuss? no Questions/Comments/Concerns/Other: none
== END 2024-07-04 12:40 | disposition home or self-care (01) ==
LOC: ER 18:53 → MS 07-04 07:18
PROVIDERS: Registered Nurse; Admitting Provider Family Medicine; Emergency Provider Emergency Medicine; Visit Provider Family Medicine
DX: E86.0 Dehydration (principal); N17.9 Acute kidney failure, unspecified; T67.02XA Exertional heatstroke, initial encounter; X58.XXXA Exposure to other specified factors, initial encounter; F17.210 Nicotine dependence, cigarettes, uncomplicated
CPT/HCPCS: 36415; 71045; 80053; 81003; 82550; 83735; 84100; 84484; 85025; 85610; 93005; 94761; 96360; 96361; 99285; 99406; G0378

== ENCOUNTER 2024-07-11 10:57 | Outpatient (OUT) | payer OTHER, SELFPAY ==
--- OUTSIDE RECORDS SUMMARY | 2024-07-11 11:09 | XMS_ITS | CCD ---
Author Organization [facility] Inform ion Partnership [facility] Care Team Providers Care Real Estate Specialist Name Role Phone KENAN BATES Admitting Unavailable KENAN BATES Attending Unavailable KENAN BATES Consulting Unavailable REQUEST, NONE LISTED Consulting Unavailable NO FAMILY, PHYSICIAN Primary Care Provider PUSHPA Perera Attending Provider LEI YOST Attending Unavailable DHARMESH FLORES Referring [...] on 07-08-2022 Ova and Parasite Result 1 [facility] Basophils Auto (Bld) [#/Vol] Ordered By: Christa Britton on 07-01-2022 Basophils (Bld) [#/Vol] 0.0 10*3/uL 0.0-0.2 [facility] Basophils/100 WBC Auto (Bld) Ordered By: Christa Britton on 07-01-2022 Basophils/100 WBC (Bld) 0.3 % . [facility] Blood hemoglobin measurement (mass/volume)Ordered By: Christa Britton on 07-01-2022 Hemoglobin (Bld) [Mass/Vol] 14.8 g/dL 13.0-17.0 [facility] Blood leukocytes automated c ount (number/volume)Ordered By: Christa Britton on 07-01-2022 WBC (Bld) [#/Vol] 7.1 10*3/uL 4.5-11.0 [facility] Body fluid albumin measureme nt (mass/volume)Ordered By: Christa Britton on 07-01-2022 Albumin (Body fld) [Mass/Vol] 3.8 g/dL 3.2-5.5 [facility] Clostridioides difficile tox in B tcdB gene [Presence] in Stool by GOPI with probe deteOrdered By: Christa Britton on 07-01-2022 C. difficile toxin B tcdB gene GOPI+probe Ql (Stl) Negative Negative [facility] Comment on above: Testing performed by RT-PCR Creatinine and Glomerular fi ltration rate.predicted panel (S/P/Bld)Ordered By: Christa Britton on 07-01-2022 Creatinine [Mass/Vol] 0.98 mg/dL 0.64-1.27 [facility] Eosinophils Auto (Bld) [#/Vo l]Ordered By: Christa Britton on 07-01-2022 Eosinophils (Bld) [#/Vol] 0.0 10*3/uL 0.0-0.45 [facility] Eosinophils/100 WBC Auto (Bl d)Ordered By: Christa Britton on 07-01-2022 Eosinophils/100 WBC (Bld) 0.5 % . [facility] Erythrocyte distribution wid th Auto (RBC) [Ratio]Ordered By: Christanegrita Britton on 07-01-2022 Erythrocyte distribution width (RBC) [Ratio] 16.8 % 12.0-14.8 [facility] Estimated glomerular filtrat ion rate (GFR) non- AmericanOrdered By: Christa Britton on 07-01-2022 GFR/1.73 sq M.predicted among non-blacks MDRD (S/P/Bld) [Vol rate/Area] > 60 mL/Min [facility] Globulin Calc (S) [Mass/Vol] Ordered By: Deerfield Tobi on 07-01-2022 Globulin (S) [Mass/Vol] 2.9 g/dL [facility] Hematocrit Auto (Bld) [Volum e fraction]Ordered By: Christanegrita Britton on 07-01-2022 Hematocrit (Bld) [Volume fraction] 45.4 % 38.8-50.0 [facility] Hepatitis B virus surface Ag [Presence] in Serum or Plasma by ImmunoassayOrdered By: Christa Britton on 07-01-2022 HBV surface Ag IA Ql Negative Negative [facility] Hepatitis C virus RNA [Units /volume] (viral load) in Serum or Plasma by GOPI with probOrdered By: Christa Britton 07-01-2022 HCV RNA GOPI+probe Qn N/A [facility] Hepatitis C virus RNA [log u nits/volume] (viral load) in Serum or Plasma by GOPI withOrdered By: Christa Britton 07-01-2022 HCV RNA GOPI+probe [Log units/Vol] N/A [facility] Laboratory - Chemistry and C hemistry - challengeOrdered By: Christanegrita Britton 07-01-2022 Amylase [Catalytic activity/Vol] 27 U/L 7-64 [facility] Laboratory - Hematology and Cell countsOrdered By: Christanegrita Britton 07-01-2022 Nucleated RBC/100 WBC (Bld) [Ratio] 0.0 % 0-0.5 [facility] Lymphocytes Auto (Bld) [#/Vo l]Ordered By: Christa Britton 07-01-2022 Lymphocytes (Bld) [#/Vol] 1.0 10*3/uL 1.00-4.8 [facility] Lymphocytes/100 WBC Auto (Bl d)Ordered By: Christa Britton on 07-01-2022 Lymphocytes/100 WBC (Bld) 13.6 % . [facility] MCH Auto (RBC) [Entitic mass ]Ordered By: Christa Britton on 07-01-2022 MCH (RBC) [Entitic mass] 27.7 pg 27.5-35.2 [facility] MCHC Auto (RBC) [Mass/Vol]Or dered By: Christa Britton on 07-01-2022 MCHC (RBC) [Mass/Vol] 32.5 g/dL 32.5-35.6 [facility] MCV Auto (RBC) [Entitic vol] Ordered By: Christa Britton on 07-01-2022 MCV (RBC) [Entitic vol] 85.2 fL 83.5-101 [facility] Monocytes Auto (Bld) [#/Vol] Ordered By: Christa Britton on 07-01-2022 Monocytes (Bld) [#/Vol] 0.5 10*3/uL 0.0-0.8 [facility] Monocytes/100 WBC Auto (Bld) Ordered By: Christa Britton on 07-01-2022 Monocytes/100 WBC (Bld) 6.4 % . [facility] Neutrophils Auto (Bld) [#/Vo l]Ordered By: Christanegrita Britton on 07-01-2022 Neutrophils (Bld) [#/Vol] 5.6 10*3/uL 1.8-7.7 [facility] Neutrophils/100 WBC Auto (Bl d)Ordered By: Christanegrita Britton on 07-01-2022 Neutrophils/100 WBC (Bld) 79.2 % . [facility] No Panel InformationOrdered By: Christa Britton on 07-01-2022 Estimated GFR () > 60 mL/Min [facility] Comment on above: GFR estimated refere nce range: According to KDOQI guidelines, <60 ml/min/1.73m2 is sufficient to diagnose a patient with chronic kidney disease. Hepatitis A IgM Antibody Negative Negative [facility] Hepatitis B Core IgM Antibody Negative Negative [facility] Hepatitis C Interpretation See comment . [facility] Comment on above: Negative Not infected with HCV, unless recent infection is suspected or other evidence exists to indicate HCV infection. Performed at: [email or web address] [id number] Agency Sales Management Assistant: Devon Rodriguez PhD, Phone: [phone] Hepatitis C RNA Quantitative N/A [facility] Creatinine Clearance (Chem N/A [facility] Platelet mean volume Auto (B ld) [Entitic vol]Ordered By: Christa Britton on 07-01-2022 Platelet mean volume (Bld) [Entitic vol] 8.1 fL 6.6-10.1 [facility] Platelets Auto (Bld) [#/Vol] Ordered By: Christa Britton on 07-01-2022 Platelets (Bld) [#/Vol] 272 10*3/uL 150-450 [facility] Protein [Mass/volume] in Ser um or PlasmaOrdered By: Christa Britton on 07-01-2022 Protein [Mass/Vol] 6.7 g/dL 6.1-7.9 [facility] RBC Auto (Bld) [#/Vol]Ordere d By: Christa Britton on 07-01-2022 RBC (Bld) [#/Vol] 5.33 10*6/uL 3.90-5.[address] [facility] Serum or plasma alanine reyes otransferase measurement without P-5'-P (enzymatic activiOrdered By: Christa Britton on 07-01-2022 ALT No additional P-5'-P [Catalytic activity/Vol] 22 U/L 10-60 [facility] Serum or plasma albumin/glob ulin mass ratioOrdered By: Christanegrita Britton on 07-01-2022 Albumin/Globulin [Mass ratio] 1.3 {ratio} [facility] Serum or plasma alkaline johnny sphatase measurement (enzymatic activity/volume)Ordered By: Christa Britton on 07-01-2022 ALP [Catalytic activity/Vol] 60 U/L 32-92 [facility] Serum or plasma aspartate am inotransferase measurement (enzymatic activity/volume)Ordered By: Christa Britton on 07-01-2022 AST [Catalytic activity/Vol] 28 U/L 10-42 [facility] Serum or plasma calcium dana urement (mass/volume)Ordered By: Christa Britton on 07-01-2022 Calcium [Mass/Vol] 9.2 mg/dL 8.2-10.2 [facility] Serum or plasma chloride doroteo surement (moles/volume)Ordered By: Christa Britton on 07-01-2022 Chloride [Moles/Vol] 104 mmol/L 95-114 [facility] Serum or plasma glucose dana urement (mass/volume)Ordered By: Christa Britton on 07-01-2022 Glucose [Mass/Vol] 142 mg/dL 70-100 [facility] Comment on above: ADA recommended refe [...] IA [Rel units/Vol] <0.1 s/co ratio 0.0-0.9 [facility] Serum or plasma potassium me asurement (moles/volume)Ordered By: Christa Britton 07-01-2022 Potassium [Moles/Vol] 3.5 mmol/L 3.5-5.1 [facility] Serum or plasma sodium measu rement (moles/volume)Ordered By: Christa Britton 07-01-2022 Sodium [Moles/Vol] 136 mmol/L 136-146 [facility] Serum or plasma total biliru bin measurement (mass/volume)Ordered By: Christa Britton 07-01-2022 Bilirubin [Mass/Vol] 0.6 mg/dL 0.3-1.2 [facility] Serum or plasma total carbon dioxide measurement (moles/volume)Ordered By: Christa Britton 07-01-2022 CO2 [Moles/Vol] 22.4 mmol/L 22.0-30.0 [facility] Serum or plasma urea nitroge n measurement (mass/volume)Ordered By: Christa Britton on 07-01-2022 Urea nitrogen [Mass/Vol] 7 mg/dL 07-31 [facility] XR Abdomen 2 Viewson 022 XR Abdomen [...] by Tyler Panchal on 07/01/2022 1032 Normal [facility] [employer] XR Spine Lumbar 4+ Views*on 07-01-2022 XR [...] by Tyler Panchal on 07/01/2022 1031 Normal [facility] Specialist CHLAMYDIA/GONOCOCCUS GOPI (SW AB/URINE/PAPon 10-25-2019 Chlamydia trachomatis, GOPI Negative Normal Negative [facility] Comment on above: Performed By: #### C T/NGNA #### [facility] [address] [address] Aj Carmona Neisseria gonorrhoeae, GOPI Negative Normal Negative [facility] Comment on above: Performed By: #### C T/NGNA #### [facility] [address] [address] Aj Carmona CULTURE URINEon 10-22-2019 CULTURE URINE Culture Observations: Light growth of mixed skin razia.No potential pathogens seen. Normal [facility] Comment on above: Performed By: #### U RCX #### [facility] [address] [place] [address] Aj Kristine ER URINE PROFILEon 9 Bilirubin [Mass/Vol] Negative Normal NEGATIVE [facility] Comment on above: Performed By: #### JOHAN VALLE #### [facility] [address] [place] [address] Aj Kristine BLOOD Negative Normal NEGATIVE [facility] Comment on above: Performed By: #### JOHAN VALLE #### [facility] [address] [place] [address] Aj Kristine Clarity (U) CLEAR Normal [facility] Comment on above: Performed By: #### JOHAN VALLE #### [facility] [address] [place] [address] Aj Kristine Color (U) YELLOW Normal YELLOW [facility] Comment on above: Performed By: #### JOHAN VALLE #### [facility] [address] [place] [address] Aj Kristine ERUAHD A micrscopic examination will be performed if indicated. Normal [facility] Comment on above: Performed By: #### JOHAN VALLE #### [facility] [address] [place] [address] Aj Kristine Glucose [Mass/Vol] Negative Normal NEGATIVE [facility] Comment on above: Performed By: #### JOHAN VALLE #### [facility] [address] [place] [address] Aj Kristine Ketones Ql (U) Negative Normal NEGATIVE [facility] Comment on above: Performed By: #### JOHAN VALLE #### [facility] [address] [place] [address] Aj Kristine Nitrite Ql (U) Negative Normal NEGATIVE [facility] Comment on above: Performed By: #### ARJUN VALLERO #### [facility] [address] [place] [address] Aj Kristine pH (Bld) 7.0 Normal 5-9 [facility] Comment on above: Performed By: #### JOHAN VALLE #### [facility] [address] [place], [place] [id number] Aj Kristine Protein (U) [Mass/Vol] Negative Normal [facility] Comment on above: Performed By: #### JOHAN VALLE #### [facility] [address] [place], [place] [id number] Aj Kristine SPEC GRAVITY 1.020 Normal 1.005-<=1.025 [facility] Comment on above: Performed By: #### JOHAN VALLE #### [facility] [address] [place] [address] Aj Kristine UR MICRO IND INDICATED Normal [facility] Comment on above: Performed By: #### JOHAN VALLE #### [facility] [address] [place] [address] Aj Kristine Urobilinogen Qn (U) 1.0 EU/dl Normal [facility] Comment on above: Performed By: #### JOHAN VALLE #### [facility] [address] [place], [place] [id number] Aj Kristine WBC (Bld) [#/Vol] TRACE Normal NEGATIVE [facility] Comment on above: Performed By: #### JOHAN VALLE #### [facility] [address] [place], [place] [id number] Aj Kristine URINE MICROSCOPIC ONLYon Bacteria LM.HPF (Urine sed) [#/Area] TRACE Normal NONE SEEN [facility] Comment on above: Performed By: #### JOHAN VALLE #### [facility] [address] [place], [place] [id number] Aj Kristine CAST NONE SEEN Normal NONE SEEN [facility] Comment on above: Performed By: #### JOHAN VALLE #### [facility] [address] [place], [place] [id number] Aj Kristine Crystals LM Nom (Urine sed) NONE SEEN Normal NONE SEEN [facility] Comment on above: Performed By: #### JOHAN VALLE #### [facility] [address] [place] [address] Aj Kristine CULTURE INDICATED Normal [facility] Comment on above: Performed By: #### E JOYCELYN UMICRO #### [facility] [address] [id number] Ajchuck Carmona Epithelial cells LM.HPF (Urine sed) [#/Area] FEW Normal [facility] Comment on above: Performed By: #### E RUR, UMICRO #### [facility] [address] [id number] Aj Kristine MUCOUS LARGE Normal NONE SEEN [facility] Comment on above: Performed By: #### E RUR, UMICRO #### [facility] [address] [id number] Aj Kristine RBC (U) [#/Vol] 0-2 Normal 0-2 [facility] Comment on above: Performed By: #### Marvel HIRSCH, UMICRO #### [facility] [address] [id number] Aj Carmona WBC (Bld) [#/Vol] 10-20 Normal NONE SEEN [facility] Comment on above: Performed By: #### Marvel RUR, UMICRO #### [facility] [address] [id number] Aj Carmona Encounters Encounter Date Encounter Type Care Provider Facility Start: 06-26-2024 ambulatory [facility] acility:[facility] Start: 02-22-2024 End: 02-22-2024 ambulatory [facility] Start: 07-01-2022 End: 07-01-2022 Patient encounter procedure PHYSICIAN NO FAMILY [facility] Start: 10-22-2019 End: 10-22-2019 Patient encounter procedure KENAN BATES Facility:[facility] Procedures Date Procedure Procedure Detail Performing Clinician Ova and Parasite Result 1 PH YSICIAN NO FAMILY Ova OR parasites identification PHYSICIAN NO FAMILY Payers Date Payer Category Payer Self-pay [id number] 2022 Private Health Insurance [id number] 2022 Private Health Insurance [id number] 1985 Unknown [id number] 1985 Unknown [id number] 1959 Private Health Insurance [id number] Private Health Insurance [facility] [id number] Unknown [id number] Social History Date Type Detail Facility Start: 05-14-2020 Tobacco smoking stat [facility] Smoker (finding) [facility] Start: 1985 Sex Assigned At Male [facility] Evaluation note Note Date & Type Note Facility Evaluation note No assessment information availa ble [facility] Work Phone: Summary Purpose Family History No [...] content) DATE CREATED AUTHOR 10/25/[address] [facility] pital DATE CREATED AUTHOR AUTHOR'S ORGANIZ ATION 07/04/2022 [facility] dical Specialist DATE CREATED AUTHOR AUTHOR'S ORGANIZ ATION 02/23/2024 [facility] DATE CREATED AUTHOR AUTHOR'S ORGANIZ ATION 07/06/2024 [facility] ysician Group Care Teams (unrecognized sec [...] BE BASED ON THE PRIMARY CLINICAL RECORDS. [facility], [facility]. provides no warranty or guarantee of the accuracy or completeness of information in this document.
[2024-07-11 11:21] LABS: Basophils Percent Auto 0.3 % (0.2-2.0); Eosinophils Absolute Auto 0.1 10^3/uL (0.0-0.7); Hematocrit 41.6 % (42.0-54.0); Hemoglobin 13.9 g/dL (14.0-18.0); Immature Granulocytes Abs Auto 0.01 10^3/uL (0.00-0.03); Immature Granulocytes Pct Auto 0.2 % (0.0-0.5); Lymphocytes Absolute Auto 1.7 10^3/uL (1.2-3.8); Lymphocytes Percent Auto 28.5 % (20.5-60.0); Mean Corpuscular HGB Conc 33.4 g/dL (29.9-35.2); Mean Corpuscular Hemoglobin 27.7 pg (25.9-34.0); Mean Corpuscular Volume 82.9 fL (80.0-94.0); Mean Platelet Volume 9.6 fL (9.5-13.5); Monocytes Absolute Auto 0.5 10^3/uL (0.3-0.8); Monocytes Percent Auto 7.6 % (1.7-12.0); Neutrophils Absolute Auto 3.7 10^3/uL (1.4-6.5); Neutrophils Percent Auto 61.4 % (43.0-75.0); Platelet Count 254 10^3/uL (150-450); Red Blood Count 5.02 10^6/uL (4.70-6.10); Red Cell Distribution Width 15.4 % (11.0-15.0)
[2024-07-11 12:19] LABS: Alanine Aminotransferase 26 U/L (16-63); Albumin Globulin Ratio 1.4; Albumin Level 4.2 g/dL (3.4-5.0); Alkaline Phosphatase 46 U/L (46-116); Anion Gap 13.6; Aspartate Amino Transferase 22 U/L (15-37); Bilirubin Total 0.3 mg/dL (0.2-1.0); Calcium 9.6 mg/dL (8.5-10.1); Carbon Dioxide 27.3 mmol/L (21.0-32.0); Chloride 104 mmol/L (98-107); Estimated GFR (African America >60 (>=60); Estimated GFR (Non-African Ame >60 (>=60); Globulin 3.1 g/dL; Glucose 89 mg/dL (74-106); Potassium 3.9 mmol/L (3.5-5.1); Sodium 141 mmol/L (136-145); Total Protein 7.3 g/dL (6.4-8.2)
== END 2024-07-11 10:58 | disposition home or self-care (01) ==
PROVIDERS: Visit Provider Nurse Practitioner Family
DX: T67.01XA Heatstroke and sunstroke, initial encounter (principal); N28.9 Disorder of kidney and ureter, unspecified
CPT/HCPCS: 36415; 80053; 85025

== ENCOUNTER 2024-07-28 11:06 | Outpatient (OUT) | payer OTHER, SELFPAY ==
--- OUTSIDE RECORDS SUMMARY | 2024-07-28 11:16 | XMS_ITS | CCD ---
Author Organization [facility] Inform ion Partnership [facility] Care Team Providers Care Compliance Consultant Name Role Phone KENAN BATES Admitting Unavailable [...] on 07-08-2022 Ova and Parasite Result 1 [facility] Basophils Auto (Bld) [#/Vol] Ordered By: Christa Britton on 07-01-2022 Basophils (Bld) [#/Vol] 0.0 10*3/uL 0.0-0.2 [facility] Basophils/100 WBC Auto (Bld) Ordered By: Christa Britton on 07-01-2022 Basophils/100 WBC (Bld) 0.3 % . F [facility] Blood hemoglobin measurement (mass/volume)Ordered By: Christa Britton on 07-01-2022 Hemoglobin (Bld) [Mass/Vol] 14.8 g/dL 13.0-17.0 [facility] Blood leukocytes automated c ount (number/volume)Ordered By: Christa Britton on 07-01-2022 WBC (Bld) [#/Vol] 7.1 10*3/uL 4.5-11.0 [facility] Body fluid albumin measureme nt (mass/volume)Ordered By: Christa Britton on 07-01-2022 Albumin (Body fld) [Mass/Vol] 3.8 g/dL 3.2-5.5 [facility] Clostridioides difficile tox in B tcdB gene [Presence] in Stool by GOPI with probe deteOrdered By: Christa Britton on 07-01-2022 C. difficile toxin B tcdB gene GOPI+probe Ql (Stl) Negative Negative [facility] Comment on above: Testing performed by RT-PCR Creatinine and Glomerular fi ltration rate.predicted panel (S/P/Bld)Ordered By: Christa Britton on 07-01-2022 Creatinine [Mass/Vol] 0.98 mg/dL 0.64-1.[address] [facility] Eosinophils Auto (Bld) [#/Vo l]Ordered By: Christa Britton on 07-01-2022 Eosinophils (Bld) [#/Vol] 0.0 10*3/uL 0.0-0.45 [facility] Eosinophils/100 WBC Auto (Bl d)Ordered By: Christa Britton on 07-01-2022 Eosinophils/100 WBC (Bld) 0.5 % . [facility] Erythrocyte distribution wid th Auto (RBC) [Ratio]Ordered By: Christanegrita Britton on 07-01-2022 Erythrocyte distribution width (RBC) [Ratio] 16.8 % 12.0-14.8 [facility] Estimated glomerular filtrat ion rate (GFR) non- AmericanOrdered By: Christa Britton on 07-01-2022 GFR/1.73 sq M.predicted among non-blacks MDRD (S/P/Bld) [Vol rate/Area] > 60 mL/Min [facility] Globulin Calc (S) [Mass/Vol] Ordered By: Walton Phoenix on 07-01-2022 Globulin (S) [Mass/Vol] 2.9 g/dL F [facility] Hematocrit Auto (Bld) [Volum e fraction]Ordered By: Christanegrita Britton on 07-01-2022 Hematocrit (Bld) [Volume fraction] 45.4 % 38.8-50.0 [facility] Hepatitis B virus surface Ag [Presence] in Serum or Plasma by ImmunoassayOrdered By: Christa Britton on 07-01-2022 HBV surface Ag IA Ql Negative Negative [facility] Hepatitis C virus RNA [Units /volume] (viral load) in Serum or Plasma by GOPI with probOrdered By: Christa Britton 07-01-2022 HCV RNA GOPI+probe Qn N/A [facility] Hepatitis C virus RNA [log u nits/volume] (viral load) in Serum or Plasma by GOPI withOrdered By: Christa Britton 07-01-2022 HCV RNA GOPI+probe [Log units/Vol] N/A [facility] Laboratory - Chemistry and C hemistry - challengeOrdered By: Christanegrita Britton 07-01-2022 Amylase [Catalytic activity/Vol] 27 U/L 7-64 [facility] - Hematology and Cell countsOrdered By: Christanegrita Britton 07-01-2022 Nucleated RBC/100 WBC (Bld) [Ratio] 0.0 % 0-0.5 [facility] Lymphocytes Auto (Bld) [#/Vo l]Ordered By: Christa Britton 07-01-2022 Lymphocytes (Bld) [#/Vol] 1.0 10*3/uL 1.00-4.8 [facility] Lymphocytes/100 WBC Auto (Bl d)Ordered By: Christa Britton on 07-01-2022 Lymphocytes/100 WBC (Bld) 13.6 % . [facility] MCH Auto (RBC) [Entitic mass ]Ordered By: Christa Britton on 07-01-2022 MCH (RBC) [Entitic mass] 27.7 pg 27.5-35.2 [facility] MCHC Auto (RBC) [Mass/Vol]Or dered By: Christa Britton on 07-01-2022 MCHC (RBC) [Mass/Vol] 32.5 g/dL 32.5-35.6 [facility] MCV Auto (RBC) [Entitic vol] Ordered By: Christa Britton on 07-01-2022 MCV (RBC) [Entitic vol] 85.2 fL 83.5-101 F [facility] Monocytes Auto (Bld) [#/Vol] Ordered By: Christa Britton on 07-01-2022 Monocytes (Bld) [#/Vol] 0.5 10*3/uL 0.0-0.8 [facility] Monocytes/100 WBC Auto (Bld) Ordered By: Christa Britton on 07-01-2022 Monocytes/100 WBC (Bld) 6.4 % . [facility] Neutrophils Auto (Bld) [#/Vo l]Ordered By: Christanegrita Britton on 07-01-2022 Neutrophils (Bld) [#/Vol] 5.6 10*3/uL 1.8-7.7 [facility] Neutrophils/100 WBC Auto (Bl d)Ordered By: Christanegrita Britton on 07-01-2022 Neutrophils/100 WBC (Bld) 79.2 % . [facility] No Panel InformationOrdered By: Christa Britton on 07-01-2022 Estimated GFR () > 60 mL/Min [facility] Comment on above: GFR estimated refere nce range: According to KDOQI guidelines, <60 ml/min/1.73m2 is sufficient to diagnose a patient with chronic kidney disease. Hepatitis A IgM Antibody Negative Negative [facility] Hepatitis B Core IgM Antibody Negative Negative [facility] Hepatitis C Interpretation See comment . [facility] Comment on above: Negative Not infected with HCV, unless recent infection is suspected or other evidence exists to indicate HCV infection. Performed at: [email or web address] [id number] [employer]: Devon Rodriguez PhD, Phone: [phone] Hepatitis C RNA Quantitative N/A [facility] Creatinine Clearance (Chem N/A [facility] Platelet mean volume Auto (B ld) [Entitic vol]Ordered By: Christa Britton on 07-01-2022 Platelet mean volume (Bld) [Entitic vol] 8.1 fL 6.6-10.1 [facility] Platelets Auto (Bld) [#/Vol] Ordered By: Christa Britton on 07-01-2022 Platelets (Bld) [#/Vol] 272 10*3/uL 150-450 [facility] Protein [Mass/volume] in Ser um or PlasmaOrdered By: Christa Britton on 07-01-2022 Protein [Mass/Vol] 6.7 g/dL 6.1-7.9 [facility] RBC Auto (Bld) [#/Vol]Ordere d By: Christa Britton on 07-01-2022 RBC (Bld) [#/Vol] 5.33 10*6/uL 3.90-5.60 [facility] Serum or plasma alanine reyes otransferase measurement without P-5'-P (enzymatic activiOrdered By: Christa Britton on 07-01-2022 ALT No additional P-5'-P [Catalytic activity/Vol] 22 U/L 10-60 [facility] Serum or plasma albumin/glob ulin mass ratioOrdered By: Christanegrita Britton on 07-01-2022 Albumin/Globulin [Mass ratio] 1.3 {ratio} [facility] Serum or plasma alkaline johnny sphatase measurement (enzymatic activity/volume)Ordered By: Christa Britton on 07-01-2022 ALP [Catalytic activity/Vol] 60 U/L 32-92 [facility] Serum or plasma aspartate am inotransferase measurement (enzymatic activity/volume)Ordered By: Christa Britton on 07-01-2022 AST [Catalytic activity/Vol] 28 U/L 10-42 [facility] Serum or plasma calcium dana urement (mass/volume)Ordered By: Christa Britton on 07-01-2022 Calcium [Mass/Vol] 9.2 mg/dL 8.2-10.2 [facility] Serum or plasma chloride doroteo surement (moles/volume)Ordered By: Christa Britton on 07-01-2022 Chloride [Moles/Vol] 104 mmol/L 95-114 [facility] Serum or plasma glucose dana urement (mass/volume)Ordered By: Christa Britton on 07-01-2022 Glucose [Mass/Vol] 142 mg/dL 70-100 [facility] Comment on above: ADA recommended refe [...] IA [Rel units/Vol] <0.1 s/co ratio 0.0-0.9 [facility] Serum or plasma potassium me asurement (moles/volume)Ordered By: Christa Britton 07-01-2022 Potassium [Moles/Vol] 3.5 mmol/L 3.5-5.[address] [facility] Serum or plasma sodium measu rement (moles/volume)Ordered By: Christa Britton 07-01-2022 Sodium [Moles/Vol] 136 mmol/L 136-146 [facility] Serum or plasma total biliru bin measurement (mass/volume)Ordered By: Christa Britton 07-01-2022 Bilirubin [Mass/Vol] 0.6 mg/dL 0.3-1.2 [facility] Serum or plasma total carbon dioxide measurement (moles/volume)Ordered By: Christa Britton 07-01-2022 CO2 [Moles/Vol] 22.4 mmol/L 22.0-30.0 [facility] Serum or plasma urea nitroge n measurement (mass/volume)Ordered By: Christa Britton on 07-01-2022 Urea nitrogen [Mass/Vol] 7 mg/dL 07-31 [facility] XR Abdomen 2 Viewson 022 XR [...] by Tyler Panchal on 07/01/2022 1032 Normal [facility] Veget[employer] XR Spine Lumbar 4+ Views*on 07-01-2022 XR [...] Tyler Panchal on 07/01/2022 1031 Normal [facility] Specialist CHLAMYDIA/GONOCOCCUS GOPI (SW AB/URINE/PAPon 10-25-2019 Chlamydia trachomatis, GOPI Negative Normal Negative [facility] Comment on above: Performed By: #### C T/NGNA #### [facility] [address] [address] Aj Carmona Neisseria gonorrhoeae, GOPI Negative Normal Negative [facility] Comment on above: Performed By: #### C T/NGNA #### [facility] [address] [address] Aj Carmona CULTURE URINEon 10-22-2019 CULTURE URINE Culture Observations: Light growth of mixed skin razia.No potential pathogens seen. Normal [facility] Comment on above: Performed By: #### U RCX #### [facility] [address] [place] [address] Aj Kristine ER URINE PROFILEon 9 Bilirubin [Mass/Vol] Negative Normal NEGATIVE [facility] Comment on above: Performed By: #### JOHAN VALLE #### [facility] [address] [place] [address] Aj Kristine BLOOD Negative Normal NEGATIVE [facility] Comment on above: Performed By: #### JOHAN VALLE #### [facility] [address] [place] [address] Aj Kristine Clarity (U) CLEAR Normal [facility] Comment on above: Performed By: #### JOHAN VALLE #### [facility] [address] [place] [address] Aj Kristine Color (U) YELLOW Normal YELLOW [facility] Comment on above: Performed By: #### JOHAN VALLE #### [facility] [address] [place] [address] Aj Kristine ERUAHD A micrscopic examination will be performed if indicated. Normal [facility] Comment on above: Performed By: #### JOHAN VALLE #### [facility] [address] [place] [address] Aj Kristine Glucose [Mass/Vol] Negative Normal NEGATIVE [facility] Comment on above: Performed By: #### JOHAN VALLE #### [facility] [address] [place] [address] Aj Kristine Ketones Ql (U) Negative Normal NEGATIVE [facility] Comment on above: Performed By: #### JOHAN VALLE #### [facility] [address] [place] [address] Aj Kristine Nitrite Ql (U) Negative Normal NEGATIVE [facility] Comment on above: Performed By: #### ARJUN VALLERO #### [facility] [address] [place] [address] Aj Kristine pH (Bld) 7.0 Normal 5-9 [facility] Comment on above: Performed By: #### JOHAN VALLE #### [facility] [address] [place], [place] [id number] Aj Kristine Protein (U) [Mass/Vol] Negative Normal [facility] Comment on above: Performed By: #### JOHAN VALLE #### [facility] [address] [place], [place] [id number] Aj Kristine SPEC GRAVITY 1.020 Normal 1.005-<=1.025 [facility] Comment on above: Performed By: #### JOHAN VALLE #### [facility] [address] [place] [address] Aj Kristine UR MICRO IND INDICATED Normal [facility] Comment on above: Performed By: #### JOHAN VALLE #### [facility] [address] [place] [address] Aj Kristine Urobilinogen Qn (U) 1.0 EU/dl Normal [facility] Comment on above: Performed By: #### JOHAN VALLE #### [facility] [address] [place], [place] [id number] Aj Kristine WBC (Bld) [#/Vol] TRACE Normal NEGATIVE [facility] Comment on above: Performed By: #### JOHAN VALLE #### [facility] [address] [place], [place] [id number] Aj Kristine URINE MICROSCOPIC ONLYon Bacteria LM.HPF (Urine sed) [#/Area] TRACE Normal NONE SEEN [facility] Comment on above: Performed By: #### JOHAN VALLE #### [facility] [address] [place], [place] [id number] Aj Kristine CAST NONE SEEN Normal NONE SEEN [facility] Comment on above: Performed By: #### JOHAN VALLE #### [facility] [address] [place], [place] [id number] Aj Kristine Crystals LM Nom (Urine sed) NONE SEEN Normal NONE SEEN [facility] Comment on above: Performed By: #### JOHAN VALLE #### [facility] [address] [place] [address] Aj Kristine CULTURE INDICATED Normal [facility] Comment on above: Performed By: #### E JOYCELYN UMICRO #### [facility] [address] [id number] Ajchuck Carmona Epithelial cells LM.HPF (Urine sed) [#/Area] FEW Normal [facility] Comment on above: Performed By: #### E RUR, UMICRO #### [facility] [address] [id number] Aj Kristine MUCOUS LARGE Normal NONE SEEN [facility] Comment on above: Performed By: #### E RUR, UMICRO #### [facility] [address] [phone] Aj Carmona RBC (U) [#/Vol] 0-2 Normal 0-2 [facility] Comment on above: Performed By: #### Marvel HIRSCH, UMICRO #### [facility] [address] [id number] Aj Carmona WBC (Bld) [#/Vol] 10-20 Normal NONE SEEN [facility] Comment on above: Performed By: #### Marvel RUR, UMICRO #### [facility] [address] [id number] Aj Carmona Encounters Encounter Date Encounter Type Care Provider Facility Start: 07-17-2024 ambulatory [facility] acility:[facility] Start: 02-22-2024 End: 02-22-2024 ambulatory [facility] Start: 07-01-2022 End: 07-01-2022 Patient encounter procedure PHYSICIAN NO FAMILY [facility] Start: 10-22-2019 End: 10-22-2019 Patient encounter procedure KENAN BATES Facility:[facility] Procedures Date Procedure Procedure Detail Performing Clinician Ova and Parasite Result 1 PH YSICIAN NO FAMILY Ova OR parasites identification PHYSICIAN NO FAMILY Payers Date Payer Category Payer Self-pay [id number] 2022 Private Health Insurance [id number] 2022 Private Health Insurance [id number] 1985 Unknown [id number] 1985 Unknown [id number] 1959 Private Health Insurance [id number] Private Health Insurance [facility] [id number] Unknown [id number] Social History Date Type Detail Facility Start: 05-14-2020 Tobacco smoking stat [facility] Smoker (finding) [facility] Start: 1985 Sex Assigned At Male F [facility] Evaluation note Note Date & Type Note Facility Evaluation note No assessment information availa [facility] Work Phone: Summary Purpose Family History No [...] and content) DATE CREATED AUTHOR 10/25/2019 [facility] DATE CREATED AUTHOR AUTHOR'S ORGANIZ ATION 07/04/2022 [facility] dical Specialist DATE CREATED AUTHOR AUTHOR'S ORGANIZ ATION 02/23/2024 [facility] DATE CREATED AUTHOR AUTHOR'S ORGANIZ ATION 07/18/[address] [facility] ysician Group Care Teams (unrecognized sec [...] BE BASED ON THE PRIMARY CLINICAL RECORDS. [facility] provides no warranty or guarantee of the accuracy or completeness of information in this document.
[2024-07-28 13:31] LABS: Alanine Aminotransferase 21 U/L (16-63); Albumin Globulin Ratio 1.3; Albumin Level 4.3 g/dL (3.4-5.0); Alkaline Phosphatase 48 U/L (46-116); Anion Gap 10.4; Aspartate Amino Transferase 18 U/L (15-37); BUN Creatinine Ratio 10.8; Bilirubin Total 0.3 mg/dL (0.2-1.0); Calcium 9.5 mg/dL (8.5-10.1); Carbon Dioxide 29.5 mmol/L (21.0-32.0); Chloride 105 mmol/L (98-107); Estimated GFR (African America >60 (>=60); Estimated GFR (Non-African Ame >60 (>=60); Globulin 3.3 g/dL; Glucose 102 mg/dL (74-106); Potassium 3.9 mmol/L (3.5-5.1); Sodium 141 mmol/L (136-145); Total Protein 7.6 g/dL (6.4-8.2)
== END 2024-07-28 11:07 | disposition home or self-care (01) ==
PROVIDERS: Visit Provider Nurse Practitioner Family
DX: T67.02XA Exertional heatstroke, initial encounter (principal); E86.0 Dehydration; N17.9 Acute kidney failure, unspecified
CPT/HCPCS: 36415; 80053

== ENCOUNTER 2024-09-04 11:39 | Outpatient (OUT) | payer OTHER, MEDICAID, SELFPAY ==
--- OUTSIDE RECORDS SUMMARY | 2024-09-04 12:06 | XMS_ITS | CCD ---
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 1959 Private Health Insurance [id number] Private Health Insurance [facility] [id number] Unknown [id number] Social History Date Type Detail Facility Start: 05-14-2020 Tobacco smoking stat [facility] Smoker (finding) [facility] Start: 1985 Sex Assigned At Male F [facility] Start: 05-19-2023 [facility] History of tobacco use Cigarette Smoker [facility] Start: 05-19-2023 Tobacco use and exposure Smokeless tobacco non-user [facility] Start: 05-19-2023 End: 08-28-2024 Alcoholic beverage intake Ex-drinker (finding) [facility] Start: 05-19-2023 End: 08-28-2024 History of Social function [facility] Start: 05-19-2023 End: 08-28-2024 Tobacco use panel [facility] Start: 1985 Sex assigned at Not on file N [facility] History of Present illness Narrative 08-28-2024 Linda Albert NP - 08/28/2024 5:10 PM Yisel Albert NP - 08/28/2024 5:09 PM Yisel Albert NP - 08/28/2024 5:08 PM Yisel Albert NP - 08/28/2024 9:30 AM EDT Note Date & Type Note Facility 08-28-2024 History of Presen t illness Narrative Associated Problem(s): Wellness examination I have reviewed Ht/Wt/BMI, I have reviewed recommended vaccines for patient's age, as well as all recommended screenings I have reviewed available care everywhere notes as well. I have recommended eating a balanced diet, as well as activity as chronic conditions allow It is recommended that the patient have a yearly eye exam, as well as twice a year dental exams Fu in this office for wellness on a yearly basis Diet: Eat three meals per day. Breakfast, lunch, and dinner. Avoid snacking. Avoid eating after 5/6 pm. Daily protein GOAL 35% of your intake; 30g per meal. Daily calorie GOAL 1,800-2,000 per day. Consider tracking your food intake on MyFtinessPal or LoseIt Water: Increase water intake; GOAL 64-80oz of water per day. Exercise: Increase activity. GOAL 30 minutes, 5 days per week. START SLOW. Start with 5 minutes, 5 days per week. Then increase to 10 days, 5 days per week. Continue to increase until you reach the goal. Increase steps; GOAL 10,000 steps per day. Be sure to get adequate sleep; GOAL 6-8 hours of sleep per night. Associated Problem(s): Lumbar back pain with radiculopathy affecting right lower extremity Lower back pain Denies injury or trauma Has been going for 6 months Pain radiates down R leg Numbness/ tingling Denies loss of bowel or bladder. Xray ordered. Associated Problem(s): Urinary dysfunction Frequent urination, but little amounts Has to force stream Dribbling Images from the original note were not included. Subjective Patient ID: Carole Villalba Sr. is a 39 y.o. male who presents for Dizziness. HPI Here today to Establish Care Lives at home with two children, has 5 total Works at [employer] in [place], [place] Going back to school for [employer] Enjoys cooking and spenid g time with children Diet: Mostly home cooked meals; mostly protein. Lots of sweets. Water: 16 ounces per day Caffeine: 1 cup of coffee per day Exercise: Physical job Sleep: Restless. Sleeps 3-4 hours per night. Wakes up frequently to urinate. Specialists: Follows with [facility] in [place] Had heat stroke in June 2024- was admitted for one day- will request notes. Susanne with occupational health in [place] Frequent urination, but little amounts Has to force stream Dribbling Lower back pain Denies injury or trauma Has been going for 6 months Pain radiates down R leg Numbness/ tingling Denies loss of bowel or bladder function. Review of Systems Constitutional: Positive for fatigue. Negative for activity change, appetite change, chills, diaphoresis, fever and unexpected weight change. HENT: Negative for congestion, ear pain, rhinorrhea, sinus pressure, sinus pain, sneezing, sore throat, trouble swallowing and voice change. Eyes: Negative for visual disturbance. Respiratory: Negative for cough, chest tightness, shortness of breath and wheezing. Cardiovascular: Negative for chest pain, palpitations and leg swelling. Gastrointestinal: Negative for abdominal distention, abdominal pain, blood in stool, constipation, diarrhea and vomiting. Genitourinary: Negative for decreased urine volume, dysuria, flank pain, frequency, hematuria and urgency. Musculoskeletal: Positive for back pain. Negative for arthralgias, gait problem, joint swelling and myalgias. Skin: Negative for rash. Neurological: Negative for dizziness, tremors, syncope, weakness, light-headedness and headaches. Psychiatric/Behavioral: Negative for decreased concentration and suicidal ideas. The patient is not nervous/anxious. Hematological: Does not bruise/bleed easily. Endocrine: Negative for cold intolerance, heat intolerance, polydipsia, polyphagia and polyuria. Objective Physical Exam Assessment/Plan Problem List Items Addressed This Visit Encounter to establish care - Primary I have reviewed Ht/Wt/BMI, I have reviewed recommended vaccines for patient's age, as well as all recommended screenings I have reviewed available care everywhere notes as well. I have recommended eating a balanced diet, as well as activity as chronic conditions allow It is recommended that the patient have a yearly eye exam, as well as twice a year dental exams Fu in this office for wellness on a yearly basis Diet: Eat three meals per day. Breakfast, lunch, and dinner. Avoid snacking. Avoid eating after 5/6 pm. Daily protein GOAL 35% of your intake; 30g per meal. Daily calorie GOAL 1,800-2,000 per day. Consider tracking your food intake on [employer] GearinessPal or LoseIt Water: Increase water intake; GOAL 64-80oz of water per day. Exercise: Increase activity. GOAL 30 minutes, 5 days per week. START SLOW. Start with 5 minutes, 5 days per week. Then increase to 10 days, 5 days per week. Continue to increase until you reach the goal. Increase steps; GOAL 10,000 steps per day. Be sure to get adequate sleep; GOAL 6-8 hours of sleep per night. Urinary dysfunction Frequent urination, but little amounts Has to force stream Dribbling Relevant Orders Ambulatory referral to Urology PSA Fatigue Relevant Orders Vitamin D 25 hydroxy Vitamin B12 Ferritin Iron + transferrin + TIBC Lumbar back pain with radiculopathy affecting right lower extremity Lower back pain Denies injury or trauma Has been going for 6 months Pain radiates down R leg Numbness/ tingling Denies loss of bowel or bladder. Xray ordered. Relevant Orders XR LUMBAR SPINE AP/LAT/FLEX/EXT/OBLIQUES Wellness examination I have reviewed Ht/Wt/BMI, I have reviewed recommended vaccines for patient's age, as well as all recommended screenings I have reviewed available care everywhere notes as well. I have recommended eating a balanced diet, as well as activity as chronic conditions allow It is recommended that the patient have a yearly eye exam, as well as twice a year dental exams Fu in this office for wellness on a yearly basis Diet: Eat three meals per day. Breakfast, lunch, and dinner. Avoid snacking. Avoid eating after 5/6 pm. Daily protein GOAL 35% of your intake; 30g per meal. Daily calorie GOAL 1,800-2,000 per day. Consider tracking your food intake on MyFtinessPal or LoseIt Water: Increase water intake; GOAL 64-80oz of water per day. Exercise: Increase activity. GOAL 30 minutes, 5 days per week. START SLOW. Start with 5 minutes, 5 days per week. Then increase to 10 days, 5 days per week. Continue to increase until you reach the goal. Increase steps; GOAL 10,000 steps per day. Be sure to get adequate sleep; GOAL 6-8 hours of sleep per night. Relevant Orders TSH W/REFLEX TO FT4 Lipid panel Hemoglobin A1c Comprehensive metabolic panel CBC and differential Associated Problem(s): Encounter to establish care I have reviewed Ht/Wt/BMI, I have reviewed recommended vaccines for patient's age, as well as all recommended screenings I have reviewed available care everywhere notes as well. I have recommended eating a balanced diet, as well as activity as chronic conditions allow It is recommended that the patient have a yearly eye exam, as well as twice a year dental exams Fu in this office for wellness on a yearly basis Diet: Eat three meals per day. Breakfast, lunch, and dinner. Avoid snacking. Avoid eating after 5/6 pm. Daily protein GOAL 35% of your intake; 30g per meal. Daily calorie GOAL 1,800-2,000 per day. Consider tracking your food intake on MyFtinessPal or LoseIt Water: Increase water intake; GOAL 64-80oz of water per day. Exercise: Increase activity. GOAL 30 minutes, 5 days per week. START SLOW. Start with 5 minutes, 5 days per week. Then increase to 10 days, 5 days per week. Continue to increase until you reach the goal. Increase steps; GOAL 10,000 steps per day. Be sure to get adequate sleep; GOAL 6-8 hours of sleep per night. documented in this encounter [facility] Instructions 08-28-2024 Patient Instructions Note Date & Type Note Facility 08-28-2024 Instructions Linda Albert NP - 08/28/2024 9:30 AM EDT FASTING labs ordered. Nothing to eat or drink for 12 hours prior to blood draw. Water and black coffee ok. Referral sent to Urology, Dr. Vasques- they will call you. If you don't hear from them in 2 weeks, call the office! Diet: Eat three meals per day. Breakfast, lunch, and dinner. Avoid snacking. Avoid eating after 5/6 pm. Daily protein GOAL 35% of your intake; 30g per meal. Daily calorie GOAL 1,800-2,000 per day. Water: Increase water intake; GOAL 64-80oz of water per day. Exercise: Increase activity. GOAL 30 minutes, 5 days per week. START SLOW. Start with 5 minutes, 5 days per week. Then increase to 10 days, 5 days per week. Continue to increase until you reach the goal. Increase steps; GOAL 10,000 steps per day. Be sure to get adequate sleep; GOAL 6-8 hours of sleep per night. SLEEP TIPS: INCREASE your cardiovascular ACTIVITY; GOAL 150 minutes per week. AVOID eating less than 2-4 hours before bedtime. AVOID all electronics for 2 hours prior to bedtime. Bed is for SLEEP ONLY. AVOID excessive alcohol intake. AVOID caffeine after 12:00pm. Go to bed when you are tired. If you are not tired that night, push the time back by 30 minutes the next night. Continue to do so until you are able to fall asleep without difficulty. If you wake up in the middle of the night, DO NOT LAY THERE FOR LONGER THAN 40 MINUTES. Once you are up, YOU ARE UP FOR THE DAY. AVOID napping. Get a Lavender diffuser in your bedroom. Magnesium Glycinate 500-1,000mg about 30-60 minutes before bedtime. Brand: Innate documented in this encounter [facility] Evaluation note Note Date & Type Note Facility Evaluation note No assessment information availa [facility] Work Phone: Evaluation note Note Date & Type Note Facility Evaluation note Diagnosis Encounter to establish care- Primary Urinary dysfunction Fatigue, unspecified type Wellness examination Lumbar back pain with radiculopathy affecting right lower extremity documented in this encounter [facility] Summary Purpose Family History No Family History Records FoundNo Family History Records FoundNo Family History Records FoundNo Family History Records FoundNo Family History Records FoundNo Family History Records Found Advance Directives No Advanced Directives Records Found Advance Directive Response Recorded Date/ Time Advance Directives No March 23 4:49pm Chief Complaint and Reason for Visit Chief Complaint M54.50 Additional Source Comments (unrecognized sect ion and content) No Status Records FoundNo Status Records FoundNo Status Records FoundNo Status Records FoundNo Status Records FoundNo Status Records Found INFORMATION SOURCE (unrecogn ized section and content) DATE CREATED AUTHOR [facility]25/2019 [facility] DATE CREATED AUTHOR AUTHOR'S ORGANIZ ATION 07/04/2022 [facility] DATE CREATED AUTHOR AUTHOR'S ORGANIZ ATION 02/23/2024 [facility] DATE CREATED AUTHOR AUTHOR'S ORGANIZ ATION 08/27/2024 [facility] DATE CREATED AUTHOR AUTHOR'S ORGANIZ ATION 08/29/2024 [facility] EPIC DATE CREATED AUTHOR AUTHOR'S ORGANIZ ATION 09/04/2024 [facility] Care Teams (unrecognized sec tion and content) Team Status: Inactive Member Role Status Dates PHYSICIAN NO FAMILY Primary Care Provider Active PUSHPA Smith Attending Provider Active Team Status: Active Member Role Status Dates PHYSICIAN NO FAMILY Primary Care Provider Active [employer] Relationship Specialty Start Date End Date Unallocated, [facility] MD [address] [address] PCP - General Family Medicine 08/28/24 Linda Albert NP [address] [place] [id number] Nurse Practitioner Family Medicine 08/08/24 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 [employer] provides no warranty or guarantee of the accuracy or completeness of information in this document.
--- NOTE | 2024-09-04 12:13 | XR_ITS ---
The [address] [address] Patient Name: CAROLE VILLAGRAN MRN: [id number] date: 1985 Sex: M Assigned Patient Location: LAB Current Patient Location: Accession/Order Number: [id number] Exam Date: 09/04/2024 12:35 Report Date: 09/05/2024 14:18 At the request of: CHRISSY MERCADO Procedure: XR lumbar spine 6V w bending EXAMINATION: XR lumbar spine 6V w bending HISTORY: lumbar pain with radiculopathy COMPARISON: No relevant comparison available. FINDINGS: BONES: Slight right convex curvature of the lumbar spine and slight straightening of the normal lordotic curvature. No fracture, spondylolisthesis, or bone lesion. No change in alignment during flexion and extension. DISC SPACES: No significant disc height narrowing, subluxation, or endplate abnormality. PARASPINOUS: Negative. No paraspinous abnormality is seen. OTHER: Negative. XR/XR lumbar spine 6V w bending IMPRESSION: 1. No appreciable acute abnormality or significant degenerative changes. Electronically authenticated by: CANDACE TORRES Date: 09/05/2024 14:18
[2024-09-04 12:17] LABS: Basophils Percent Auto 0.5 % (0.2-2.0); Eosinophils Absolute Auto 0.2 10^3/uL (0.0-0.7); Hematocrit 42.8 % (42.0-54.0); Hemoglobin 14.3 g/dL (14.0-18.0); Immature Granulocytes Abs Auto 0.01 10^3/uL (0.00-0.03); Immature Granulocytes Pct Auto 0.2 % (0.0-0.5); Lymphocytes Absolute Auto 1.8 10^3/uL (1.2-3.8); Lymphocytes Percent Auto 28.8 % (20.5-60.0); Mean Corpuscular HGB Conc 33.4 g/dL (29.9-35.2); Mean Corpuscular Hemoglobin 27.5 pg (25.9-34.0); Mean Corpuscular Volume 82.3 fL (80.0-94.0); Mean Platelet Volume 9.1 fL (9.5-13.5); Monocytes Absolute Auto 0.4 10^3/uL (0.3-0.8); Monocytes Percent Auto 6.4 % (1.7-12.0); Neutrophils Absolute Auto 3.9 10^3/uL (1.4-6.5); Neutrophils Percent Auto 61.1 % (43.0-75.0); Platelet Count 273 10^3/uL (150-450); Red Cell Distribution Width 14.3 % (11.0-15.0); White Blood Count 6.4 10^3/uL (4.0-11.0)
[2024-09-04 12:37] LABS: Estimated Average Glucose 120 mg/dL; Glycohemoglobin A1C 5.8 % (4.5-6.2)
[2024-09-04 13:00] LABS: Alanine Aminotransferase 18 U/L (16-63); Albumin Globulin Ratio 1.1; Alkaline Phosphatase 45 U/L (46-116); Anion Gap 13.3; Aspartate Amino Transferase 17 U/L (15-37); BUN Creatinine Ratio 11.2; Bilirubin Total 0.2 mg/dL (0.2-1.0); Calcium 9.1 mg/dL (8.5-10.1); Carbon Dioxide 26.5 mmol/L (21.0-32.0); Chloride 106 mmol/L (98-107); Chol HDL Ratio 3.2; Cholesterol 188 mg/dL (<=200); Estimated GFR (African America >60 (>=60 mL/min/1.73m^2); Estimated GFR (Non-African Ame >60 (>=60 mL/min/1.73m^2); Globulin 3.5 g/dL; Glucose 95 mg/dL (74-106); HDL Cholesterol 58 mg/dL (40-60); LDL Cholesterol Calculated 114.4 mg/dL; Potassium 3.8 mmol/L (3.5-5.1); Sodium 142 mmol/L (136-145); TSH W/ REFLEX FT4 1.744 uIU/mL (0.358-3.740); Total Protein 7.5 g/dL (6.4-8.2); Triglycerides 78 mg/dL (<=150); VLDL CHOLESTEROL 15.6 mg/dL
[2024-09-04 13:06] LABS: Prostate Specific Antigen Scrn 1.29 ng/mL (<=4.00)
[2024-09-05 05:08] LABS: Transferrin 251 mg/dL (177-329); Vitamin B12 497 pg/mL (232-1245)
== END 2024-09-04 11:40 | disposition home or self-care (01) ==
DX: Z00.00 Encounter for general adult medical examination without abnormal findings (principal); R39.198 Other difficulties with micturition; R53.83 Other fatigue; M54.16 Radiculopathy, lumbar region
CPT/HCPCS: 36415; 72114; 80053; 80061; 82306; 82607; 82728; 83036; 83540; 83550; 84443; 84466; 85025; G0103

== ENCOUNTER 2025-02-27 09:15 | Emergency (ER) | payer OTHER, MEDICAID, SELFPAY ==
[2025-02-27 09:20] VITALS: BP 140/97; PULSE 79; TEMP 36.6; O2SAT 99; BMI 25.6
--- NOTE | 2025-02-27 09:27 | ED.GENADUL1 ---
HPI HPI - General Adult General Chief complaint: Extremity Injury, Lower Stated complaint: TOE PAIN Time Seen by Provider: 02/27/25 09:18 Source: patient Mode of arrival: walk-in Limitations: no limitations History of Present Illness HPI narrative: 39-year-old male presents to the emergency department for an injury to his left 2nd and 3rd toes. He scraped it on asphalt 3 days ago. He has had a tetanus shot less than 10 years ago. It continued to hurt today so he came in to have it looked at. Related Data Home Medications ?Medication ?Instructions ?Recorded ?Confirmed No Known Home Medications 07/04/24 07/04/24 Allergies Allergy/AdvReac Type Severity Reaction Status Date / Time No Known Drug Allergies Allergy Verified 02/27/25 09:26 Opioid HPI Opioid Management Most Recent Opioid Data: Last Pain Scale 4 02/27/25 09:20 02/27/25 Last ORT Total Score 4 07/03/24 20:35 07/03/24 Last ORT Risk Category Moderate Risk 07/03/24 20:35 07/03/24 Review of Systems ROS Narrative A ten point review of systems is negative except as noted above. [facility] Medical History (Updated 02/27/25 @ 09:45 by Anibal Escamilla MD) Elbow fracture, right ?S42.401A - Unspecified fracture of lower end of right humerus, initial encounter for closed fracture (ICD-10) Dehydration ?E86.0 - Dehydration (ICD-10) Bronchitis ?J40 - Bronchitis, not specified as acute or chronic (ICD-10) Family History Father Family history of stroke Social History Within the past year, how often did you have a drink containing alcohol: never Within the past year, how often did you have six or more drinks on one occasion: never Score interpretation: A score less than 4 is consistent with normal alcohol consumption. Known occupational exposures/hazards: Yes Highest level of school completed/degree received: high school graduate Little interest or pleasure in doing things: not at all Feeling down, depressed, or hopeless: not at all Exam Narrative Exam Narrative: Nurses note and vital signs reviewed and patient is not hypoxic. General: The patient appears well and in no apparent distress. Patient is resting comfortably on cart. Skin: Warm, dry, no pallor noted. There is no rash noted. Head: Normocephalic, atraumatic Eye: Normal conjunctiva, no drainage Ears, Nose, Mouth, and Throat: oral mucosa is moist. Nares patent. Cardiovascular: Regular Rate and Rhythm Respiratory: Patient is in no distress, no accessory muscle use Back: non-tender GI: Soft and nontender Musculoskeletal: His left foot is examined. The second toe has 2 small pieces of skin avulsed on the dorsum. The third toe has a small avulsion as well. No purulent drainage or erythema. Neurological: A&O, normal speech Psychiatric: Cooperative Constitutional Vital Signs, click to edit/add: Last Vital Signs Temp 97.9 F 02/27/25 09:20 Pulse 79 02/27/25 09:20 Resp 20 02/27/25 09:20 BP 140/97 H 02/27/25 09:20 Pulse Ox 99 02/27/25 09:20 O2 Del Method Room Air 02/27/25 09:20 Course Vital Signs Vital signs: Vital Signs Temperature 97.9 F 02/27/25 09:20 Pulse Rate 79 02/27/25 09:20 Respiratory Rate 20 02/27/25 09:20 Blood Pressure 140/97 H 02/27/25 09:20 Pulse Oximetry 99 02/27/25 09:20 Oxygen Delivery Method Room Air 02/27/25 09:20 Temperature 97.9 F 02/27/25 09:20 Pulse Rate 79 02/27/25 09:20 Respiratory Rate 20 02/27/25 09:20 Blood Pressure 140/97 H 02/27/25 09:20 Pulse Oximetry 99 02/27/25 09:20 Oxygen Delivery Method Room Air 02/27/25 09:20 Medical Decision Making MDM Narrative Medical decision making narrative: X-ray of his foot shows no fractures. He has skin avulsion but there is no evidence of an infection. He was given a work note since he wears steel toed boots. Treatment diagnosis and follow-up were discussed with the patient. Differential Diagnosis Differential Diagnosis: Skin avulsion, fracture Imaging Data Left foot x-ray: My impression: No acute findings Discharge Plan Discharge Chief Complaint: Extremity Injury, Lower Clinical Impression: Avulsion of skin Patient Disposition: Home, Self-Care Time of Disposition Decision: 09:45 Condition: Good Mode of Transportation: Private Vehicle Prescriptions / Home Meds: No Action No Known Home Medications Print Language: Spanish Instructions: Skin Avulsion (ED)
== END 2025-02-27 10:03 | disposition home or self-care (01) ==
LOC: ER 10:01
PROVIDERS: Emergency Provider Emergency Medicine
DX: S91.105A Unspecified open wound of left lesser toe(s) without damage to nail, initial encounter (principal); X58.XXXA Exposure to other specified factors, initial encounter
CPT/HCPCS: 73630; 99283